=== PATIENT | female | born 1930 | race Caucasian/White ===

== ENCOUNTER 2017-04-05 11:26 | Emergency (ER) | payer MEDICARE ==
[2017-04-05 11:30] VITALS: BP 154/101
--- NOTE | 2017-04-05 12:05 | RAD ---
HISTORY: Confusion, fall, on anticoagulation COMPARISONS: None TECHNIQUE: Multiple contiguous axial CT scans were obtained of the head without intravenous contrast. FINDINGS: HEMORRHAGE/INFARCT: There is no hemorrhage or acute infarct. MASSES/SHIFT: There is no mass or shift. EXTRA-AXIAL SPACES: There are no extra-axial fluid collections. SULCI AND VENTRICLES: The sulci and ventricles are normal in size and position for the patient's stated age. CEREBRUM: There is mild hypoattenuation of the periventricular and subcortical white matter. BRAINSTEM: There are no focal parenchymal abnormalities. CEREBELLUM: There are no focal parenchymal abnormalities. VESSELS: The vessels are grossly normal. PARANASAL SINUSES: The paranasal sinuses are clear. ORBITS: The orbits are unremarkable. BONES AND SOFT TISSUE: No bone or soft tissue abnormalities are noted. OTHER: None IMPRESSION: NO ACUTE INTRACRANIAL PATHOLOGY.
--- NOTE | 2017-04-05 12:31 | RAD ---
Indication: Left shoulder pain. 4 views of left shoulder demonstrates no fracture. AC joint arthritis is noted. IMPRESSION: No fracture of the left shoulder is noted.
--- NOTE | 2017-04-05 12:34 | RAD ---
Indication: LEFT hand pain post fall. Bruising. Comparison: No relevant prior exams available on the [facility] for comparison. Technique: AP and lateral views LEFT hand REPORT AND IMPRESSION: Negative for fracture or dislocation. Minimal polyarticular osteoarthritis. Small subchondral cyst at the proximal pole of the lunate. Mild nonfocal soft tissue swelling.
--- NOTE | 2017-04-06 18:57 | ED ---
Simin Montesinos Thomas, scribed for Emmanuel Han MD on 04/05/17 at 1144 . Head Injury - HPI Summary HPI Summary: The pt is an 87 y/o F with head injury to her left zoroastrianism s/p an accidental fall that occurred about an hour ago. She c/o left arm pain and ecchymosis to her left zoroastrianism. She rates the arm pain 4/10. She denies LOC and neck pain. She is on Coumadin. Her Ronald Contreras is currently a patient at [facility]. Alysia head trauma occurred shortly before the ambulance arrived to her house to transport her to the ED. - History Of Current Complaint Chief Complaint: EDHeadInjury Stated Complaint: FALL Time Seen by Provider: 04/05/17 11:28 Hx Obtained From: Patient Mechanism Of Injury: Fall From A Standing Position Onset/Duration: Started Hours Ago - fall was about one hour ago, Still Present Pain Intensity: 4 Pain Scale Used: 0-10 Numeric Location of Head Injury: Temporal - left Aggravating Factor(s): Other: - Nothing Alleviating Factor(s): Other: - Nothing Associated Signs And Symptoms: Other: - Head trauma, Anticoagulant Therapy: Coumadin - Allergies/Home Medications Allergies/Adverse Reactions: Allergies Allergy/AdvReac Type Severity Reaction Status Date / Time Aspirin Allergy Hives Verified 11/08/15 11:17 Sulfa Antibiotics Allergy Rash Verified 11/08/15 11:17 PMH/Surg Hx/FS Hx/Imm Hx Previously Healthy: No Cardiovascular History: Reports: Hx Coronary Artery Disease, Hx Hypertension, Other Cardiovascular Problems/Disorders - AFIB- ON DIGOXIN Musculoskeletal History: Reports: Hx Arthritis Sensory History: Reports: Hx Cataracts, Hx Contacts or Glasses, Hx Hearing Aid Opthamlomology History: Reports: Hx Cataracts, Hx Contacts or Glasses - Cancer History Hx Chemotherapy: No Hx Radiation Therapy: No - Surgical History Surgery Procedure, Year, and Place: CABG, 2008, [place], [place] Hx Anesthesia Reactions: No Infectious Disease History: No Infectious Disease History: Denies: Traveled Outside the [place] in Last 30 Days - Family History Known Family History: Negative: Other - Negative for cancer - Social History Alcohol Use: None Hx Substance Use: No Substance Use Type: Reports: None Hx Tobacco Use: Yes Smoking Status (MU): Former Smoker Type: Cigarettes Length of Time of Smoking/Using Tobacco: 35 YEARS Have You Smoked in the Last Year: No Review of Systems Positive: Other - L arm pain; NEGATIVE: neck pain Positive: Bruising - to left zoroastrianism Neurological: Other - Head injury; NEGATIVE: LOC All Other Systems Reviewed And Are Negative: Yes Physical Exam - Summary Physical Exam Summary: VITAL SIGNS: Reviewed. GENERAL: Patient is a well-developed and nourished female who is lying comfortable in the stretcher. Patient is not in any acute respiratory distress. HEAD AND FACE: No signs of trauma. No ecchymosis, hematomas or skull depressions. No sinus tenderness. EYES: PERRLA, EOMI x 2, No injected conjunctiva, no nystagmus. EARS: Hearing grossly intact. Ear canals and tympanic membranes are within normal limits. MOUTH: Oropharynx within normal limits. NECK: Supple, trachea is midline, no adenopathy, no JVD, no carotid bruit, no c- spine tenderness, neck with full ROM. CHEST: Symmetric, no tenderness at palpation LUNGS: Clear to auscultation bilaterally. No wheezing or crackles. CVS: Regular rate and rhythm, S1 and S2 present, no murmurs or gallops appreciated. ABDOMEN: Soft, non-tender. No signs of distention. No rebound no guarding, and no masses palpated. Bowel sounds are normal. EXTREMITIES: FROM in all major joints, no edema, no cyanosis or clubbing. NEURO: Alert and oriented x 3. No acute neurological deficits. Speech is normal and follows commands. SKIN: Dry and warm. She has ecchymosis in her left temporal area. Triage Information Reviewed: Yes Vital Signs On Initial Exam: Initial Vitals Temp Pulse Resp BP Pulse Ox 96.9 F 96 17 154/101 96 04/05/17 11:27 04/05/17 11:27 04/05/17 11:27 04/05/17 11:27 04/05/17 11:27 Vital Signs Reviewed: Yes Diagnostics - Vital Signs Vital Signs Temp Pulse Resp BP Pulse Ox 04/05/17 11:27 96.9 F 96 17 154/101 96 - Laboratory Lab Statement: Any lab studies that have been ordered have been reviewed, and results considered in the medical decision making process. - Radiology Hand XR Xray Interpretation: No Acute Changes - Negative for fracture or dislocation. Minimal polyarticular osteoarthritis. Small subchondral cyst at the proximal pole of the lunate. Mild nonfocal soft tissue swelling. ED physician has reviewed this report and agrees. Radiology Interpretation Completed By: Radiologist Shoulder XR Xray Interpretation: No Acute Changes - No fracture of the left shoulder is noted. ED physician has reviewed this report and agrees. Radiology Interpretation Completed By: Radiologist - CT CT Brain CT Interpretation: No Acute Changes - No acute intracranial pathology. ED physician has reviewed this report and agrees. CT Interpretation Completed By: Radiologist Head Injury Course/Dx Assessment/Plan: The pt is an 87 y/o F with head injury to her left zoroastrianism s/p an accidental fall that occurred about an hour ago. She c/o left arm pain and ecchymosis to her left zoroastrianism. She rates the arm pain 4/10. She denies LOC and neck pain. She is on Coumadin. Her Ronald Contreras is currently a patient at [facility]. Amelias head trauma occurred shortly before the ambulance arrived to her house to transport her to the ED. Head CT shows no acute intracranial pathology. Radiographs of the hand and shoulder are negative for dislocation and fracture. The patient is ambulatory, has no complains, and her neurological exam is intact. Therefore, she will be discharged home with follow up by primary care. The patient is hemodynamically stable and alert and oriented x 3. - Diagnoses Provider Diagnoses: Head contusion, Hand contusion Discharge - Discharge Plan Condition: Stable Disposition: HOME Patient Education Materials: Contusion in Adults (ED) Referrals: Fabienne ESTEVEZ,Dian Abdullahi [Primary Care Provider] - 3 Days Additional Instructions: Follow up with your primary care provider in 2-3 days. Return to the emergency department for any new or worsening symptoms. The documentation as recorded by the Simin kendall Thomas accurately reflects the service I personally performed and the decisions made by , Emmanuel Han MD.
== END 2017-04-05 13:21 | disposition home or self-care (01) ==
LOC: ED 11:26
DX: S00.93XA Contusion of unspecified part of head, initial encounter (principal); S60.222A Contusion of left hand, initial encounter; M79.602 Pain in left arm; Z87.891 Personal history of nicotine dependence; Z79.01 Long term (current) use of anticoagulants; W19.XXXA Unspecified fall, initial encounter; Y93.9 Activity, unspecified; Y92.9 Unspecified place or not applicable
CPT/HCPCS: 70450; 99282

== ENCOUNTER 2017-08-02 08:29 | Emergency (ER) | payer MEDICARE ==
[2017-08-02 08:36] VITALS: BP 134/71
--- NOTE | 2017-08-02 09:20 | UC ---
Sadiq Montesinos Gabriel, scribed for Yessi Lock MD on 08/02/17 at 0903 . Respiratory Complaint HPI - HPI Summary HPI Summary: This patient is a 87 year old F presenting [place] [facility] [place] her daughter with a chief complaint of a productive cough that began 6 days ago. Her chest feels a little congested, but she is not particularly short of breath. The patient rates the pain 0/10 in severity. Patient reports chest congestion, left swollen bunion (since yesterday), and sleep disruption. Patient denies fever, chest tightness, [place], ear pain, sore throat, n/v/d, urinary symptoms, back /neck pain, and ABD pain. Pt was admitted for PNA a year and a half ago and has a history of gout. - History of Current Complaint Chief Complaint: UCRespiratory Stated Complaint: COUGH Hx Obtained From: Patient Onset/Duration: Lasting Days, Still Present Timing: Constant Severity Initially: Moderate Severity Currently: Moderate Pain Intensity: 0 Pain Scale Used: 0-10 Numeric Character: Cough: Productive Associated Signs And Symptoms: Positive: Negative - fever, chest tightness, [place], ear pain, sore throat, swollen bunion (since yesterday), n/v/d, urinary symptoms , back/neck pain, and ABD pain. - Risk Factors Cardiac Risk Factors: Hypertension, Prior [place] - Allergies/Home Medications Allergies/Adverse Reactions: Allergies Allergy/AdvReac Type Severity Reaction Status Date / Time aspirin Allergy Hives Verified 08/02/17 08:36 Sulfa (Sulfonamide Allergy Hives Verified 08/02/17 08:36 Antibiotics) Home Medications: Home Medications Ascorbic Acid 1 tab PO DAILY 08/02/17 [History Confirmed 08/02/17] Metoprolol Succinate 1 tab PO DAILY 08/02/17 [History Confirmed 08/02/17] Rosuvastatin Calcium 20 mg PO QPM 08/02/17 [History Confirmed 08/02/17] Simvastatin 1 tab PO DAILY 08/02/17 [History Confirmed 08/02/17] Warfarin TAB(*) [Coumadin TAB(*)] 3.5 mg PO DAILY@1700 08/02/17 [History Confirmed 08/02/17] PMH/Surg Hx/FS Hx/Imm Hx - Additional Past Medical History Additional PMH: Gout Cardiovascular History: Cardiac Disease, Atrial Fibrillation, Other - heart valve replacement. Other Cardiovascular History: heart valve replacement. - Surgical History Surgical History: Yes Surgery Procedure, Year, and Place: CABG, 2009, [place], [place] - Family History Known Family History: Negative: Respiratory Disease, Seizure Disorder - Social History Occupation: Retired Lives: With Family - caregiver for her who has severe COPD Alcohol Use: Rare Substance Use Type: None Smoking Status (MU): Former Smoker Type: Cigarettes Length of Time of Smoking/Using Tobacco: 35 YEARS Have You Smoked in the Last Year: No When Did the Patient Quit Smoking/Using Tobacco: 1974 - Immunization History Most Recent Influenza Vaccination: fall 2014 Most Recent Tetanus Shot: unknown Most Recent Pneumonia Vaccination: 06/2015 Review of Systems Constitutional: Other - sleep disruption Respiratory: Cough, Other - chest congestion Cardiovascular: Other - on digoxin and coumadin due to atrial fibrillation. Musculoskeletal: Negative - neck/back pain, Other: - left swollen bunion Is Patient Immunocompromised?: No All Other Systems Reviewed And Are Negative: Yes Physical Exam Triage Information Reviewed: Yes Appearance: No Pain Distress, Ill-Appearing - congested, frequent cough, looks mildly unwell., Thin Vital Signs: Initial Vital Signs Temp 97.1 F 08/02/17 08:32 Pulse 77 08/02/17 08:32 Resp 16 08/02/17 08:32 BP 134/71 08/02/17 08:32 Pulse Ox 97 08/02/17 08:32 Vital Signs Reviewed: Yes ENT: Positive: Pharynx normal Dental Exam: Normal - partial plate Neck: Positive: Supple, Nontender, No Lymphadenopathy Respiratory: Positive: Normal breath sounds, No respiratory distress Cardiovascular Exam: Other - irregular heart rate. Cardiovascular: Positive: No Murmur Abdomen Description: Positive: Nontender, No Organomegaly, Soft Bowel Sounds: Positive: Present Musculoskeletal: Positive: Other: - left foot with erythema and mild swelling of the first MTP joint. + bunion. Neurological Exam: Normal Neurological: Positive: Alert, Muscle Tone Normal Psychological Exam: Normal Skin Exam: Normal UC Diagnostic Evaluation - Laboratory O2 Sat by Pulse Oximetry: 97 Respiratory Course/Dx - Course Course Of Treatment: BP noted, mildly elevated. Patients medication reviewed during this visit. Cephalexin given due to hx of replacement heart valve. Gout treated with prednisone. - Differential Dx/Diagnosis Differential Diagnosis/HQI/PQRI: Bronchitis, Lower Resp Infection, Sinusitis Provider Diagnoses: URI with cough. acute gout. HTN Discharge - Discharge Plan Condition: Stable Disposition: HOME Prescriptions: Cephalexin CAP* [Keflex 500 CAP*] 500 mg PO TID #30 cap predniSONE [Deltasone] 20 mg PO BID #10 tablet Patient Education Materials: Upper Respiratory Infection (ED) Referrals: Carmelo Olea DO [Primary Care Provider] - Additional Instructions: Because of your history of heart valve replacement, I suggest using cephalexin to treat your respiratory illness. Today, your lungs sound clear. You do have a flare up of gout in the left foot. Prednisone will help with both gout and should also help with the airway irritation and cough. If you develop a fever, or become more short of breath, ensure that you follow up for re-assessment. Use acetaminophen 650 mg three times daily as needed to control the pain in your foot. The documentation as recorded by the Sadiq kendall Gabriel accurately reflects the service I personally performed and the decisions made by me, Yessi Lock MD.
== END 2017-08-02 09:18 | disposition home or self-care (01) ==
LOC: UCEAST 08:29
DX: J06.9 Acute upper respiratory infection, unspecified (principal); R05 Cough; M10.9 Gout, unspecified; I10 Essential (primary) hypertension; I25.2 Old myocardial infarction; Z79.01 Long term (current) use of anticoagulants; Z95.2 Presence of prosthetic heart valve; I51.9 Heart disease, unspecified; I48.91 Unspecified atrial fibrillation; Z87.891 Personal history of nicotine dependence
CPT/HCPCS: 99212; G0463

== ENCOUNTER 2017-08-25 10:15 | Emergency (ER) | payer MEDICARE ==
--- OUTSIDE RECORDS SUMMARY | 2017-08-25 10:26 | XMS REPORT ---
:1930 External Reference #:[id number] Author Organization [facility] Address [address] [place] [address] Phone [phone] Care Team Providers Name Role Phone HCP given Primary Care Physician Unavailable Payers Type Date Identification Numbers Payment Provider Subscriber Commercial Policy Number: [id number] [facility] Medicare Ppo [place] Contreras PayID: [id number] [address] [address] [place] [address] Problems Date Description Provider Status Onset: 09/14/2012 Essential hypertension Tyshawn Baker M.D. Active Onset: 07/22/2015 Chronic atrial fibrillation Tyshawn Baker M.D. Active Onset: 07/22/2015 Coronary arteriosclerosis Tyshawn Baker M.D. Active Onset: 09/14/2012 Anticoagulant Tyshawn Baker M.D. Active Onset: 09/14/2012 Aortic valve disorder Tyshawn Baker M.D. Active Onset: 09/14/2012 Mitral valve disorder Tyshawn Baker M.D. Active Onset: 09/14/2012 Pure hypercholesterolemia Tyshawn Baker M.D. Active Onset: 03/30/2014 Osteochondropathy Tyshawn Baker M.D. Active Onset: 08/15/2014 Late effect of open wound of Carmelo Olea D.O. Active extremities without tendon injury Onset: 03/05/2015 Mitral leaflet abnormality Tyshawn Baker M.D. Active Onset: 09/03/2015 Long-term current use of Tyshawn Baker M.D. Active anticoagulant Family History Date Family Member(s) Problem(s) Comments : (age 69 Years) Father due to COPD smoker : (age 85 Years) Mother due to Unknown Causes : (age 32 Years) First Son due to AIDS First Daughter Well Siblings 6th of 11 Siblings 6 : (age 80 Years) First Brother due to MO : (age 68 Years) Second Brother due to MO : (age 14 Years) Third Brother due to rheumatic fever Fourth Brother Diabetes, Nos Fifth Brother Diabetes, Nos Sixth Brother Dementia First Sister Dementia : (age 91 Years) Second Sister due to Unknown Causes Social History Type Date Description Comments Education Highest level completed, 10th grade Marital Status had pneumonia and ruptured both achilles and can no longer walk Summer 2016 - 65 years in 12/27/2016 Diet 03/30/2014 Calcium Intake GAVE CA HANDOUT Hand Dominance Left-handed Cigarette Use Tobacco Of Any Kind Denies Use Cigarette Use 03/30/2014 Denies Cigarette Use Exercise Type/Frequency 03/30/2014 Exercises sporadically URGED TO WALK EVERY DAY SOME General Hx Text health care proxy is her daughter Allergies, Adverse Reactions, Alerts Date Description Reaction Status Severity Comments 09/14/2012 Sulfa active rash 09/14/2012 Aspirin active hives Medications Medication Date Status Form Strength Qnty SIG Indications Ordering Provider Ventolin HFA 08/22/ Hx Aerosol 108(90Bas 18gm inhale 2 R05 Emmie 2018 - e) puffs by Carmelo 09/21/ mcg/Act mouth every 4 D.O. 2018 hours as needed for bronchospasm Lidocaine Kvng 08/09/ Active Ointment 5% 60gm apply small M54.5 Rose, 2018 amount to [facility] up to 4 M.D. times a day Guaifenesin-Co 08/09/ Active Syrup 100-10mg/ 180ml 5 milliliters R05 rosana Rose 2017 5ML every 4-6 [place], hours for M.D. cough Metoprolol 11/11/ Active Tablets ER 100mg 90tab 1 by mouth I10 Emmie, Succinate ER 2015 24HR s every day Qiana Rhodes Vitamin C 11/09/ Active Tablets 500mg take one Unknown 2016 tablet by mouth daily Vitamin D3 11/09/ Active Tablets 1000Unit 1 by mouth Unknown 2016 every day Simvastatin 06/14/ Active Tablets 20mg 90tab 1 by mouth I34.9 2015 s every day Gissell Rhodes. Digoxin 11/19/ Active Tablets 125mcg 90tab take one neel2014 s tablet by Carmelo, mouth every D.O. day for heart rate control Warfarin 12/31/ Active Tablets 1mg 250ta 4mg a day or Z79.01 Hektor, Sodium 2012 bs as directed YUE Biggs Potassium 02/06/ Hx Tablets ER 20Meq 90tab Take One Tyshawn Sprague 2015 - s Tablet By A. ER 02/06/ Mouth Every 2015 Day M.D. Prednisone 11/18/ Hx Tablets 20mg 7tabs 2 by mouth M10.9 Tyshawn 2015 - every day for A. 11/25/ 2d then 1qd 2015 until gone M.D. Mucinex DM 11/10/ Hx Tablets ER 30-600mg 1 by mouth Unknown 2015 - 12HR twice a day 06/25/ as directed 2017 prn for cough Cefpodoxime 11/09/ Hx Tablets 200mg 2 tablets po Unknown Proxetil 2015 - twice daily 11/15/ for 5 days 2015 Azithromycin 11/09/ Hx Tablets 250mg 2tabs daily for 2 Unknown 2016 - days 2015 Potassium 11/19/ Hx Tablets ER 20Meq 90tab Take One Tyshawn Bergers 2014 - s Tablet By A. ER 11/09/ Mouth Every 2015 Day M.D. Amoxil 09/07/ Hx Capsules 250mg 30cap 1 po tid 466.0 Tyshawn 2014 - s until gone A. 09/07/ Olivia 2014 M.D. Phenergan W09/07/ Hx Syrup 6.25mg;10 8Oz 2 tsp qid prn 466.0 Tyshawn Codeine 2014 - mg/5ML cough A. 09/17/ Olivia 2014 M.D. Amoxicillin 09/07/ Hx Capsules 250mg 30cap 1 three times 466.0 Tyshawn 2014 - s a day for ten A. 09/17/ days for , 2014 infection M.D. Tobramycin 08/26/ Hx Solution 0.3% as directed Unknown 2014 - 2015 Metoprolol 08/02/ Hx Tablets 100mg 180ta Take One I10 Tyshawn Tartrate 2014 - Tablet By A. 11/11/ Mouth Twice A 2015 Day For High M.D. Blood Pressure Potassium 03/03/ Hx Tablets ER 20Meq 90tab take 1 [place], Chloride ER 2012 - tablets once Carmelo, 11/19/ daily D.O. 2015 Gabapentin 09/13/ Hx Capsules 100mg 90cap 1 po qhs 053.9 Tyshawn 2012 - s A. 06/02/ Olivia 2012 M.D. Vitamin D 09/13/ Hx Capsules 1000Unit 1 po daily Unknown 2012 - 2015 Losartan 09/13/ Hx Tablets 50mg 90tab Take One Tyshawn Potassium 2011 - s Tablet By A. 11/09/ Mouth Every 2015 Day For High M.D. Blood Pressure Digoxin 09/10/ Hx Tablets 0.125mg 90tab take 1 tablet [place], 2008 - s daily for Carmelo, 11/19/ heart rate D.O. 2015 control. Potassium 09/10/ Hx Tablet 20Meq 90tab one po daily Tyshawn Chloride CR 2008 - s A. 03/03/ Olivia, 2012 M.D. Metoprolol 09/10/ Hx Tablets 100mg 180ta take 1 twice Tyshawn Tartrate 2008 - bs a day for A. 08/03/ blood Olivia, 2014 pressure M.D. Torsemide 09/10/ Hx Tablets 20mg 180ta take one Tyshawn 2008 - bs tablet by A. 11/09/ mouth twice a [email or web address] day M.D. Crestor 09/09/ Hx Tablets 20mg 90tab take 1 tablet I34.9 Sopneelk, 2008 - s every evening Carmelo, 06/14/ for high D.O. 2016 cholesterol Medications Administered in Office Medication Date Status Form Strength Qnty SIG Indications Ordering Provider injection, Administered Injection Tyshawn jackson, 10 mg 016 Walt Baker Immunizations CPT Code Status Date Vaccine Lot # [id number] Given 04/10/2017 Influenza Virus Vaccine, Quadrivalent, Split, Preservative Free [id number] Given 01/30/2017 Influenza Virus Vaccine, Quadrivalent, Split, [id number] Preservative Free [id number] Given 03/13/2016 Influenza Vaccine Split Virus Preservative Free Im Use 77626 Given 06/14/2015 Prevnar 13 [id number] 24044 Given 03/04/2015 Influenza Vaccine Split Virus Preservative Free [place] Use 72066 Given 02/05/2014 Influenza Vaccine Split Virus Preservative Free Im [id number] Use 66662 Given 03/13/2013 Flu, Split Virus [id number] 44485 Given 11/07/2012 Pneumococcal Immunization [id number] 85181 Given 11/07/2012 Adacel or Boostrix, TDaP [id number] Vital Signs Date Vital Result Comment 08/22/2017 BP Systolic 122 mmHg BP Diastolic 82 mmHg Body Temperature 98.0 F 08/09/2017 BP Systolic 120 mmHg BP Diastolic 82 mmHg Body Temperature 98.6 F Weight 131.00 lb with shoes 04/10/2017 BP Systolic 150 mmHg BP Diastolic 82 mmHg Weight 137.00 lb 12/25/2016 BP Systolic 112 mmHg BP Diastolic 60 mmHg Weight 134.00 lb 06/26/2016 BP Systolic 120 mmHg BP Diastolic 66 mmHg Height 61 inches 5'1" Weight 136.00 lb w/shoes BMI (Body Mass Index) 25.7 kg/m2 11/26/2015 BP Systolic 128 mmHg BP Diastolic 70 mmHg Body Temperature 97.7 F Weight 132.00 lb w/shoes 11/19/2015 BP Systolic 120 mmHg BP Diastolic 60 mmHg 11/12/2015 BP Systolic 110 mmHg BP Diastolic 60 mmHg Heart Rate 88 /min Respiratory Rate 16 /min O2 % BldC Oximetry 95 % Body Temperature 98.8 F Weight 136.00 lb m 06/14/2015 BP Systolic 114 mmHg BP Diastolic 60 mmHg Height 61.5 inches boots on Weight 134.00 lb BMI (Body Mass Index) 24.9 kg/m2 09/07/2014 BP Systolic 124 mmHg BP Diastolic 72 mmHg Heart Rate 69 /min Respiratory Rate 16 /min O2 % BldC Oximetry 92 % Body Temperature 98.0 F Weight 135.00 lb w/shoes 08/15/2014 BP Systolic 123 mmHg BP Diastolic 51 mmHg Heart Rate 59 /min Body Temperature 98.2 F 08/03/2014 BP Systolic 100 mmHg BP Diastolic 66 mmHg Heart Rate 70 /min Respiratory Rate 16 /min Weight 140.00 lb Boots on 06/08/2014 BP Systolic 100 mmHg BP Diastolic 60 mmHg Heart Rate 60 /min Respiratory Rate 16 /min Weight 137.00 lb 03/30/2014 BP Systolic 132 mmHg BP Diastolic 64 mmHg Heart Rate 70 /min RRR Height 61.25 inches 5'1.25" Weight 137.00 lb BMI (Body Mass Index) 25.7 kg/m2 10/27/2013 BP Systolic 116 mmHg BP Diastolic 60 mmHg Weight 135.00 lb 06/02/2013 BP Systolic 114 mmHg BP Diastolic 58 mmHg Height 62 inches 5'2" shoes on Weight 136.50 lb shoes on BMI (Body Mass Index) 25.0 kg/m2 01/30/2013 BP Systolic 102 mmHg BP Diastolic 60 mmHg Heart Rate 80 /min rrr Respiratory Rate 16 /min Weight 134.00 lb 11/07/2012 BP Systolic 94 mmHg BP Diastolic 56 mmHg Heart Rate 80 /min Respiratory Rate 161 /min Weight 131.00 lb 09/14/2012 BP Systolic 100 mmHg BP Diastolic 64 mmHg Height 61 inches 5'1" Weight 130.00 lb BMI (Body Mass Index) 24.6 kg/m2 Results Test Date Test Result H/L Range Note Ua Inhouse 08/09/2017 Ua Specific [place] 1.005 Ua PH 6.0 Protime W/ Inr(Add V58.61) 07/16/2017 Inr 2.08 High 0.77-1.02 Protime W/ Inr(Add V58.61) 07/02/2017 Inr 2.20 High 0.77-1.02 Protime W/ Inr(Add V58.61) 06/25/2017 Inr 1.65 High 0.77-1.02 CMP Panel 06/18/2017 Sodium 137 mmol/L 133-145 1 Potassium 4.7 mmol/L 3.5-5.0 1 Chloride 102 mmol/L 101-111 1 Co2 Carbon Dioxide 31 mmol/L 22-32 1 Anion Gap 4 mmol/L 2-11 1 Glucose 158 mg/dL High 70-100 1 Blood Urea Nitrogen 20 mg/dL 6-24 1 Creatinine 1.04 mg/dL High 0.51-0.95 1 BUN/Creatinine Ratio 19.2 8-20 1 Calcium 9.4 mg/dL 8.6-10.3 1 Total Protein 7.0 g/dL 6.4-8.9 1 Albumin 4.2 g/dL 3.2-5.2 1 Globulin 2.8 g/dL 2-4 1 Albumin/Globulin Ratio 1.5 1-3 1 Total Bilirubin 0.60 mg/dL 0.2-1.0 1 Alkaline Phosphatase 70 U/L 34-104 1 Alt 11 U/L 7-52 1 Ast 22 U/L 13-39 1 Egfr Non- 49.9 >60 1 Egfr 64.2 >60 1, 2 Laboratory test finding 06/18/2017 TSH (Thyroid Stim 2.91 mcIU/mL 0.34- 5.60 1, 3 Horm) Erythrocyte Sed Rate 24 mm/Hr 0-40 1, 4 C Reactive Protein 1.98 mg/L < 5.00 1, 5 Lipid Panel 06/18/2017 Triglycerides 164 mg/dL 1, 6 Cholesterol 150 mg/dL 1, 7 HDL Cholesterol 58.8 mg/dL 1, 8 LDL Cholesterol 58 mg/dL 1, 9 Inr/Protime 06/18/2017 Inr 1.91 High 0.77-1.02 1 CBC W/Auto Diff 06/18/2017 White Blood Count 10.0 10^3/uL 3.5-10.8 1 Red Blood Count 4.61 10^6/uL 4.0-5.4 1 Hemoglobin 13.5 g/dL 12.0-16.0 1 Hematocrit 41 % 35-47 1 Mean Corpuscular Volume 88 fL 80-97 1 Mean Corpuscular Hemoglobin 29 pg 27-31 1 Mean Corpuscular HGB Conc 33 g/dL 31-36 1 Red Cell Distribution Width 14 % 10.5-15 1 Platelet Count 222 10^3/uL 150-450 1 Mean Platelet Volume 8 um3 7.4-10.4 1 Abs Neutrophils 6.1 10^3/uL 1.5-7.7 1 Abs Lymphocytes 3.0 10^3/uL 1.0-4.8 1 Abs Monocytes 0.6 10^3/uL 0-0.8 1 Abs Eosinophils 0.3 10^3/uL 0-0.6 1 Abs Basophils 0.1 10^3/uL 0-0.2 1 Abs Nucleated RBC 0 10^3/uL 1 Granulocyte % 60.8 % 38-83 1 Lymphocyte % 29.6 % 25-47 1 Monocyte % 6.1 % 1-9 1 Eosinophil % 2.8 % 0-6 1 Basophil % 0.7 % 0-2 1 Nucleated Red Blood Cells % 0 1 Laboratory test finding 06/18/2017 Uric Acid 5.3 mg/dL 2.3-6.6 1, 10 Laboratory test finding 05/16/2017 Inr/Protime 2.46 High 0.77-1.02 11 Protime W/ Inr(Add V58.61) 05/11/2017 Inr 3.56 High 0.77-1.02 12, 13 Laboratory test finding 04/06/2017 Inr/Protime 2.29 High 0.89-1.11 14, 15 Protime W/ Inr(Add V58.61) 02/19/2017 Inr 2.61 High 0.89-1.11 Inr/Protime 01/24/2017 Inr 2.45 High 0.89-1.11 Inr/Protime 12/11/2016 Inr 2.14 High 0.89-1.11 Inr/Protime 11/01/2016 Inr 2.10 High 0.89-1.11 Inr/Protime 09/26/2016 Inr 2.22 High 0.89-1.11 Inr/Protime 08/24/2016 Inr 2.15 High 0.89-1.11 Inr/Protime 07/27/2016 Inr 2.22 High 0.89-1.11 Comp Metabolic Panel 06/28/2016 Sodium 137 mmol/L 133-145 Potassium 4.5 mmol/L 3.5-5.0 Chloride 103 mmol/L 101-111 Co2 Carbon Dioxide 30 mmol/L 22-32 Anion Gap 4 mmol/L 2-11 Glucose 94 mg/dL 70-100 Blood Urea Nitrogen 20 mg/dL 6-24 Creatinine 1.05 mg/dL High 0.51-0.95 BUN/Creatinine Ratio 19.0 8-20 Calcium 9.4 mg/dL 8.6-10.3 Total Protein 6.8 g/dL 6.4-8.9 Albumin 4.2 g/dL 3.2-5.2 Globulin 2.6 g/dL 2-4 Albumin/Globulin Ratio 1.6 1-3 Total Bilirubin 0.90 mg/dL 0.2-1.0 Alkaline Phosphatase 48 U/L 34-104 Alt 13 U/L 7-52 Ast 21 U/L 13-39 Egfr Non- 49.5 >60 Egfr 63.6 >60 16 Lipid Profile (Trig/Chol/HDL) 06/28/2016 Triglycerides 110 mg/dL 17 Cholesterol 143 mg/dL 18 HDL Cholesterol 49.2 mg/dL 19 LDL Cholesterol 72 mg/dL 20 Inr/Protime 06/26/2016 Inr 1.99 High 0.89-1.11 Urine Micro Inhouse 06/26/2016 Ua WBC - 21 Ua RBC - 21 Ua Casts - 21 Ua Epi - 21 Ua Other - 21 Ua Glucose - 21 Ua Bilirubin - 21 Ua Ketones - 21 Ua Specific [place] 1.010 21 Ua Blood - 21 Ua PH 6.5 21 Ua Protein - 21 Ua Urobilinogen - 21 Ua Nitrite - 21 Ua Leukocytes - 21 Inr/Protime 04/26/2016 Inr 2.19 High 0.89-1.11 Inr/Protime 04/25/2016 Inr 2.17 High 0.89-1.11 Inr/Protime 04/10/2016 Inr 3.39 High 0.89-1.11 Inr/Protime 03/10/2016 Inr 2.40 High 0.89-1.11 Inr/Protime 02/08/2016 Inr 2.19 High 0.89-1.11 Inr/Protime 02/01/2016 Inr 1.55 High 0.89-1.11 Inr/Protime 12/27/2015 Inr 2.93 High 0.89-1.11 Inr/Protime 12/20/2015 Inr 3.07 High 0.89-1.11 Protime W/ Inr(Add 12/10/2015 Inr 1.51 High 0.89-1.11 V58.61) Laboratory test finding 12/01/2015 Inr/Protime 1.33 High 0.89-1.11 Protime W/ Inr(Add 11/26/2015 #Prothrombin Time <pending> V58.61) #International Normalized <pending> Inr/Protime 11/26/2015 Inr 1.20 High 0.89-1.11 Protime W/ Inr(Add 11/22/2015 #International 1.2 22 V58.61) Normalized Xray 11/19/2015 X-Ray, Foot, Left, wnl Complete Laboratory test 11/19/2015 Erythrocyte Sed Rate 93 mm/Hr High 0-40 finding CBC Auto Diff 11/19/2015 White Blood Count 13.0 10^3/uL High 3.5-10.8 Red Blood Count 3.60 10^6/uL Low 4.0-5.4 Hemoglobin 10.1 g/dL Low 12.0-16.0 Hematocrit 31 % Low 35-47 Mean Corpuscular Volume 87 fL 80-97 Mean Corpuscular Hemoglobin 28 pg 27-31 Mean Corpuscular HGB Conc 32 g/dL 31-36 Red Cell Distribution Width 15 % 10.5-15 Platelet Count 402 10^3/uL 150-450 Mean Platelet Volume 9 um3 7.4-10.4 Abs Neutrophils 9.5 10^3/uL High 1.5-7.7 Abs Lymphocytes 2.3 10^3/uL 1.0-4.8 Abs Monocytes 0.8 10^3/uL 0-0.8 Abs Eosinophils 0.3 10^3/uL 0-0.6 Abs Basophils 0.2 10^3/uL 0-0.2 Abs Nucleated RBC 0.02 10^3/uL Granulocyte % 73.0 % 38-83 Lymphocyte % 17.9 % Low 25-47 Monocyte % 5.9 % 1-9 Eosinophil % 2.0 % 0-6 Basophil % 1.2 % 0-2 Nucleated Red Blood Cells % 0.2 Laboratory test finding 11/19/2015 Uric Acid 5.2 mg/dL 2.3-6.6 Protime W/ Inr(Add 11/15/2015 Inr 1.68 High 0.89-1.11 23 V58.61) CBC W/Auto Diff 11/15/2015 White Blood Count 14.7 10^3/uL High 3.5-10.8 23 Red Blood Count 3.56 10^6/uL Low 4.0-5.4 23 Hemoglobin 10.1 g/dL Low 12.0-16.0 23 Hematocrit 31 % Low 35-47 23 Mean Corpuscular Volume 88 fL 80-97 23 Mean Corpuscular Hemoglobin 28 pg 27-31 23 Mean Corpuscular HGB Conc 32 g/dL 31-36 23 Red Cell Distribution Width 14 % 10.5-15 23 Platelet Count 365 10^3/uL 150-450 23 Mean Platelet Volume 8 um3 7.4-10.4 23 Abs Neutrophils 11.2 10^3/uL High 1.5-7.7 23 Abs Lymphocytes 2.2 10^3/uL 1.0-4.8 23 Abs Monocytes 1.0 10^3/uL High 0-0.8 23 Abs Eosinophils 0.2 10^3/uL 0-0.6 23 Abs Basophils 0.1 10^3/uL 0-0.2 23 Abs Nucleated RBC 0 10^3/uL 23 Granulocyte % 76.1 % 38-83 23 Lymphocyte % 15.1 % Low 25-47 23 Monocyte % 6.6 % 1-9 23 Eosinophil % 1.4 % 0-6 23 Basophil % 0.8 % 0-2 23 Nucleated Red Blood Cells % 0 23 BMP - Basic Metabolic Panel 11/15/2015 Sodium 134 mmol/L 133-145 23 Potassium 4.7 mmol/L 3.5-5.0 23 Chloride 99 mmol/L Low 101-111 23 Co2 Carbon Dioxide 30 mmol/L 22-32 23 Anion Gap 5 mmol/L 2-11 23 Glucose 93 mg/dL 70-100 23 Blood Urea Nitrogen 14 mg/dL 6-24 23 Creatinine 1.02 mg/dL High 0.51-0.95 23 BUN/Creatinine Ratio 13.7 8-20 23 Calcium 9.1 mg/dL 8.6-10.3 23 Egfr Non- 51.3 >60 23 Egfr 65.9 >60 23, 24 Protime W/ Inr(Add 11/11/2015 #International Normalized 3.4 25 V58.61) Rapid Influenza A & 11/08/2015 Influenza A Molecular NEGATIVE Negative 26 B Molecular Influenza B Molecular NEGATIVE Negative Laboratory test 11/08/2015 Rapid Influenza A B SEE RESULT BELOW 27 finding Antigen CBC Auto Diff 11/08/2015 White Blood Count 19.2 10^3/uL High 3.5-10.8 28 Red Blood Count 4.07 10^6/uL 4.0-5.4 28 Hemoglobin 11.6 g/dL Low 12.0-16.0 28 Hematocrit 36 % 35-47 28 Mean Corpuscular Volume 88 fL 80-97 28 Mean Corpuscular Hemoglobin 28 pg 27-31 28 Mean Corpuscular HGB Conc 32 g/dL 31-36 28 Red Cell Distribution Width 14 % 10.5-15 28 Platelet Count 234 10^3/uL 150-450 28 Mean Platelet Volume 8 um3 7.4-10.4 28 Abs Neutrophils 16.1 10^3/uL High 1.5-7.7 28 Abs Lymphocytes 1.4 10^3/uL 1.0-4.8 28 Abs Monocytes 1.4 10^3/uL High 0-0.8 28 Abs Eosinophils 0 10^3/uL 0-0.6 28 Abs Basophils 0.3 10^3/uL High 0-0.2 28 Abs Nucleated RBC 0.01 10^3/uL 28 Granulocyte % 83.9 % High 38-83 28 Lymphocyte % 7.5 % Low 25-47 28 Monocyte % 7.1 % 1-9 28 Eosinophil % 0.1 % 0-6 28 Basophil % 1.4 % 0-2 28 Nucleated Red Blood Cells % 0 28 Inr/Protime 11/08/2015 Inr 3.07 High 0.89-1.11 28 Laboratory test finding 11/08/2015 Partial Thrombo 41.1 seconds High 26.0- 36.3 28 Time PTT Lactic Acid 1.2 mmol/L 0.5-2.0 28, 29 Comp Metabolic Panel 11/08/2015 Sodium 131 mmol/L Low 133-145 28 Potassium 4.3 mmol/L 3.5-5.0 28 Chloride 93 mmol/L Low 101-111 28 Co2 Carbon Dioxide 31 mmol/L 22-32 28 Anion Gap 7 mmol/L 2-11 28 Glucose 144 mg/dL High 70-100 28 Blood Urea Nitrogen 26 mg/dL High 6-24 28 Creatinine 1.42 mg/dL High 0.51-0.95 28 BUN/Creatinine Ratio 18.3 8-20 28 Calcium 9.6 mg/dL 8.6-10.3 28 Total Protein 7.9 g/dL 6.4-8.9 28 Albumin 4.2 g/dL 3.2-5.2 28 Globulin 3.7 g/dL 2-4 28 Albumin/Globulin Ratio 1.1 1-3 28 Total Bilirubin 1.40 mg/dL High 0.2-1.0 28 Alkaline Phosphatase 62 U/L 34-104 28 Alt 9 U/L 7-52 28 Ast 19 U/L 13-39 28 Egfr Non- 35.0 >60 28 Egfr 45.0 >60 28, 30 Laboratory test finding 11/08/2015 Creatine Kinase(CK) 122 U/L 10-223 28 Troponin-I (TnI) 0.04 ng/mL High <0.03 28, 31 C Reactive Protein 127.49 mg/L High < 5.00 28, 32 B-Type Natriuretic Peptide BNP 609 pg/mL High 28, 33 Erythrocyte Sed Rate 87 mm/Hr High 0-40 28 Urinalysis Profile 11/08/2015 Urine Color Yellow 28 Urine Appearance Clear 28 Urine Specific [place] 1.013 1.010-1.030 28 Urine pH 5.0 5-9 28 Urine Urobilinogen Negative Negative 28 Urine Ketones Negative Negative 28 Urine Protein Negative Negative 28 Urine Leukocytes 2+ Negative 28 Urine Blood Negative Negative 28 * * Negative 28, 34 Urine Nitrite Negative Negative 28 Urine Bilirubin Negative Negative 28 Urine Glucose Negative Negative 28 Urine White Blood Cell 1+(6-10/hpf) Absent 28 Urine Red Blood Cell Trace(0-2/hpf) Absent 28 Urine Bacteria Absent Absent 28 Urine Squamous Epithelial Cell Present Absent 28 Laboratory test finding 11/08/2015 Blood Culture SEE RESULT BELOW 35 Urine Culture And Sensitivities SEE RESULT BELOW , 36 Inr/Protime 10/11/2015 Inr 3.02 High 0.89-1.11 Inr/Protime 09/30/2015 Inr 3.14 High 0.89-1.11 Inr/Protime 08/30/2015 Inr 2.23 High 0.89-1.11 Basic Metabolic Panel 07/20/2015 Sodium 138 mmol/L 133-145 Potassium 3.9 mmol/L 3.5-5.0 Chloride 100 mmol/L Low 101-111 Co2 Carbon Dioxide 31 mmol/L 22-32 Anion Gap 7 mmol/L 2-11 Glucose 111 mg/dL High 70-100 Blood Urea Nitrogen 32 mg/dL High 6-24 Creatinine 1.38 mg/dL High 0.51-0.95 BUN/Creatinine Ratio 23.2 High 8-20 Calcium 9.1 mg/dL 8.6-10.3 Egfr Non- 36.2 >60 Egfr 46.5 >60 37 Laboratory test finding 07/20/2015 Ast (Sgot) 26 U/L 13-39 CBC Auto Diff 07/20/2015 White Blood Count 10.1 10^3/uL 3.5-10.8 Red Blood Count 3.99 10^6/uL Low 4.0-5.4 Hemoglobin 11.5 g/dL Low 12.0-16.0 Hematocrit 35 % 35-47 Mean Corpuscular Volume 88 fL 80-97 Mean Corpuscular Hemoglobin 29 pg 27-31 Mean Corpuscular HGB Conc 33 g/dL 31-36 Red Cell Distribution Width 14 % 10.5-15 Platelet Count 229 10^3/uL 150-450 Mean Platelet Volume 9 um3 7.4-10.4 Abs Neutrophils 6.8 10^3/uL 1.5-7.7 Abs Lymphocytes 2.4 10^3/uL 1.0-4.8 Abs Monocytes 0.7 10^3/uL 0-0.8 Abs Eosinophils 0.2 10^3/uL 0-0.6 Abs Basophils 0.1 10^3/uL 0-0.2 Abs Nucleated RBC 0 10^3/uL Granulocyte % 67.8 % 38-83 Lymphocyte % 23.4 % Low 25-47 Monocyte % 6.6 % 1-9 Eosinophil % 1.6 % 0-6 Basophil % 0.6 % 0-2 Nucleated Red Blood Cells % 0 Lipid Profile (Trig/Chol/HDL) 07/20/2015 Triglycerides 151 mg/dL 38 Cholesterol 165 mg/dL 39 HDL Cholesterol 42.1 mg/dL 40 LDL Cholesterol 93 mg/dL 41 Laboratory test finding 07/20/2015 Digoxin 0.7 ng/ml Low 0.8-2.0 Inr/Protime 07/20/2015 Inr 2.28 High 0.89-1.11 Inr/Protime 06/23/2015 Inr 2.49 High 0.89-1.11 Laboratory test finding 06/14/2015 Ast (Sgot) <pending> Laboratory test finding 06/14/2015 Digoxin <pending> Urine Micro Inhouse 06/14/2015 Ua WBC - 42 Ua RBC - 42 Ua Casts - 42 Ua Epi - 42 Ua Other - 42 Ua Glucose - 42 Ua Bilirubin - 42 Ua Ketones - 42 Ua Specific [place] 1.005 42 Ua Blood - 42 Ua PH 6.0 42 Ua Protein - 42 Ua Urobilinogen - 42 Ua Nitrite - 42 Ua Leukocytes - 42 Inr/Protime 05/10/2015 Inr 2.64 High 0.89-1.11 Inr/Protime 04/05/2015 Inr 2.45 High 0.78-1.07 Inr/Protime 03/05/2015 Inr 2.76 High 0.78-1.07 Inr/Protime 01/27/2015 Inr 2.75 High 0.78-1.07 Inr/Protime 12/21/2014 Inr 2.11 High 0.78-1.07 Inr/Protime 11/27/2014 Inr 2.37 High 0.78-1.07 Inr/Protime 11/09/2014 Inr 2.72 High 0.78-1.07 Inr/Protime 10/16/2014 Inr 2.19 High 0.78-1.07 Inr/Protime 10/01/2014 Inr 3.33 High 0.78-1.07 Laboratory test finding 09/03/2014 Inr 2.87 High 0.78-1.07 Urine Micro Inhouse 08/03/2014 Ua WBC - Ua RBC - Ua Casts - Ua Epi - Ua Other - Ua Glucose - Ua Bilirubin - Ua Ketones - Ua Specific [place] 1.010 Ua Blood - Ua PH 6.0 Ua Protein - Ua Urobilinogen - Ua Nitrite - Ua Leukocytes - Inr/Protime 08/03/2014 Inr 2.64 High 0.78-1.07 43 Lipid Profile 08/03/2014 Triglycerides 117 mg/dL 44, 45 (Trig/Chol/HDL) Cholesterol 103 mg/dL 44, 46 HDL Cholesterol 39.2 mg/dL 44, 47 LDL Cholesterol 40 mg/dL 44, 48 Laboratory test finding 08/03/2014 Ast 45 U/L High 13-39 44, 49 Laboratory test finding 07/03/2014 Inr 2.61 High 0.85-1.06 Laboratory test finding 06/01/2014 Inr 2.46 High 0.85-1.06 Inr/Protime 05/05/2014 Inr 2.24 High 0.85-1.06 Inr/Protime 04/20/2014 Inr 1.79 High 0.85-1.06 Inr/Protime 03/20/2014 Inr 2.13 High 0.85-1.06 Inr/Protime 02/16/2014 Inr 2.10 High 0.85-1.06 Protime W/ Inr(Add 01/14/2014 Inr 2.30 High 0.85-1.06 V58.61) Laboratory test finding 12/11/2013 Inr 2.73 High 0.85-1.06 Inr/Protime 11/14/2013 Inr 2.57 High 0.85-1.06 Xray 10/27/2013 X-Ray, Chest, 2 see notes 50 Views Urine Micro Inhouse 10/27/2013 Ua WBC - Ua RBC - Ua Casts - Ua Epi - Ua Other - Ua Glucose - Ua Bilirubin - Ua Ketones - Ua Specific [place] 1.005 Ua Blood - Ua PH 6.0 Ua Protein - Ua Urobilinogen - Ua Nitrite - Ua Leukocytes - Laboratory test finding 10/13/2013 Inr 2.13 High 0.85-1.06 Laboratory test finding 10/06/2013 Inr 1.78 High 0.85-1.06 Inr/Protime 09/29/2013 Inr 2.05 High 0.85-1.06 Inr/Protime 09/16/2013 Inr 2.95 High 0.85-1.06 Laboratory test finding 08/12/2013 Inr 2.88 High 0.85-1.06 Laboratory test finding 07/31/2013 Inr 2.80 High 0.85-1.06 Inr/Protime 07/24/2013 Inr 1.79 High 0.85-1.06 Inr/Protime 06/24/2013 Inr 2.18 High 0.85-1.06 Lipid Profile (Trig/Chol/HDL) 05/23/2013 Triglycerides 220 mg/dL High 40- 200 Cholesterol 144 mg/dL Less than 200 HDL Cholesterol 46 mg/dL 40-60 51 Cholesterol/HDL Ratio 3.1 Average 1-4.44 LDL Cholesterol 54.0 Less Than 100 52 Laboratory test finding 05/23/2013 Ast 28 U/L 12-42 53 CBC Auto Diff 05/23/2013 White Blood Count 8.7 10^3/uL 4.8-10.8 Red Blood Count 4.03 10^6/uL 4.0-5.4 Hemoglobin 11.8 g/dL Low 12.0-16.0 Hematocrit 35 % 35-47 Mean Corpuscular Volume 87 fL 80-97 Mean Corpuscular Hemoglobin 29 pg 27-31 Mean Corpuscular HGB Conc 34 g/dL 31-36 Red Cell Distribution Width 14 % 10.5-15 Platelet Count 206 10^3/uL 150-450 Mean Platelet Volume 10 um3 7.4-10.4 Abs Neutrophils 4.9 10^3/uL 1.5-7.7 Abs Lymphocytes 2.9 10^3/uL 1.0-4.8 Abs Monocytes 0.6 10^3/uL 0-0.8 Abs Eosinophils 0.2 10^3/uL 0-0.6 Abs Basophils 0.1 10^3/uL 0-0.2 Abs Nucleated RBC 0 10^3/uL Granulocyte % 57.0 % 38-83 Lymphocyte % 33.1 % 25-47 Monocyte % 7.2 % 1-9 Eosinophil % 1.9 % 0-6 Basophil % 0.8 % 0-2 Nucleated Red Blood Cells % 0 Basic Metabolic Panel 05/23/2013 Sodium 141 mmol/L 133-145 Potassium 4.3 mmol/L 3.5-5.0 Chloride 103 mmol/L 101-111 Co2 Carbon Dioxide 32.0 mmol/L 22-32 Anion Gap 6.0 mmol/L 2-11 Glucose 110 mg/dL High 70-100 Blood Urea Nitrogen 19 mg/dL 6-24 Creatinine 1.20 mg/dL 0.50-1.40 BUN/Creatinine Ratio 15.8 8-20 Calcium 9.5 mg/dL 8.1-9.9 Egfr Non- 42.7 >60 Egfr 54.9 >60 54 Inr/Protime 05/23/2013 Inr 2.15 High 0.85-1.06 55 Laboratory test finding 04/22/2013 Inr 2.19 High 0.85-1.06 56 Laboratory test finding 03/28/2013 Inr 2.27 High 0.87-0.97 Laboratory test finding 03/20/2013 Inr 1.95 High 0.87-0.97 Inr/Protime 03/13/2013 Inr 1.83 High 0.87-0.97 Inr/Protime 03/06/2013 Inr 1.94 High 0.87-0.97 Laboratory test finding 02/13/2013 Inr 3.33 High 0.87-0.97 Urine Micro Inhouse 01/30/2013 Ua WBC - Ua RBC - Ua Casts - Ua Epi - Ua Other - Ua Glucose - Ua Bilirubin - Ua Ketones - Ua Specific [place] 1.010 Ua Blood - Ua PH 5.0 Ua Protein - Ua Urobilinogen - Ua Nitrite - Ua Leukocytes - Inr/Protime 01/30/2013 Inr 1.81 High 0.87-0.97 Laboratory test finding 01/13/2013 Inr 2.37 High 0.87-0.97 Laboratory test finding 12/31/2012 Inr 3.45 High 0.87-0.97 Inr/Protime 12/03/2012 Inr 2.65 High 0.87-0.97 Urine Micro Inhouse 11/07/2012 Ua WBC 0-2 Ua RBC - Ua Casts - Ua Epi 0-1 Ua Other - Ua Glucose - Ua Bilirubin - Ua Ketones - Ua Specific [place] 1.010 Ua Blood - Ua PH 5.0 Ua Protein - Ua Urobilinogen - Ua Nitrite - Ua Leukocytes - Laboratory test finding 10/28/2012 Inr 3.00 High 0.87-0.97 Inr/Protime 10/01/2012 Inr 2.97 High 0.87-0.97 1 [id number] 2 Because ethnic data is not always readily available, this report includes an eGFR for both -Americans and non- Americans. The National Kidney Disease Education Program (NKDEP) does not endorse the use of the MDRD equation for patients that are not between the ages of 18 and 70, are , have extremes of body size, muscle mass, or nutritional status, or are non- or non-. According to the National Kidney Foundation, irrespective of diagnosis, the stage of the disease is based on the level of kidney function: Stage Description GFR(mL/min/1.73 m(2)) 1 Kidney damage with normal or decreased GFR 90 2 Kidney damage with mild decrease in GFR 60-89 3 Moderate decrease in GFR 30-59 4 Severe decrease in GFR 15-29 5 Kidney failure <15 (or dialysis) 3 [id number] 5 Acute inflammation: >10.00 6 Desirable: <150 Borderline High: 150-199 High: 200-499 Very High: >500 7 Desirable: <200 Borderline High: 200-239 High: >239 8 Low: <40 Desirable: 40-60 High: >60 9 Desirable: <100 Near Optimal: 100-129 Borderline High: 130-159 High: 160-189 Very High: >189 10 [id number] 11 Please note the change in INR reference range effective 17. 12 [id number] 13 Please note the change in INR reference range effective 17. 14 [id number] 15 [id number] 16 Because ethnic data is not always readily available, this report includes an eGFR for both -Americans and non- Americans. The National Kidney Disease Education Program (NKDEP) does not endorse the use of the MDRD equation for patients that are not between the ages of 18 and 70, are , have extremes of body size, muscle mass, or nutritional status, or are non- or non-. According to the National Kidney Foundation, irrespective of diagnosis, the stage of the disease is based on the level of kidney function: Stage Description GFR(mL/min/1.73 m(2)) 1 Kidney damage with normal or decreased GFR 90 2 Kidney damage with mild decrease in GFR 60-89 3 Moderate decrease in GFR 30-59 4 Severe decrease in GFR 15-29 5 Kidney failure <15 (or dialysis) 17 Desirable <150 Borderline high 150-199 High 200-499 Very High >500 18 Desirable <200 Borderline high 200-239 High >239 19 Low <40 Desirable: 40-60 High: >60 20 Desirable: <100 mg/dL Near Optimal: 100-129 mg/dL Borderline High: 130-159 mg/dL High: 160-189 mg/dL Very High: >189 mg/dL 21 void, clear, yellow 22 called in by Adina liao w/VNS 23 INR in separate triage. SL 24 Because ethnic data is not always readily available, this report includes an eGFR for both -Americans and non- Americans. The National Kidney Disease Education Program (NKDEP) does not endorse the use of the MDRD equation for patients that are not between the ages of 18 and 70, are , have extremes of body size, muscle mass, or nutritional status, or are non- or non-. According to the National Kidney Foundation, irrespective of diagnosis, the stage of the disease is based on the level of kidney function: Stage Description GFR(mL/min/1.73 m(2)) 1 Kidney damage with normal or decreased GFR 90 2 Kidney damage with mild decrease in GFR 60-89 3 Moderate decrease in GFR 30-59 4 Severe decrease in GFR 15-29 5 Kidney failure <15 (or dialysis) 25 fingerstick by VNS nurse 26 Front Desk Assistant: [id number] VIRGIE SANTILLAN 27 SEE RESULT BELOW Name: GENEVA CONTRERAS : [address]: Eros Peters DO Acct: [id number] Unit: [id number] AGE: 85 Location: ED Re11/08/15 SEX: F Status: REG ER SPEC: [id number] MANN: 11/08/[address]: Eros Peters DO REQ: [id number] RECD: 11/08/15 STATUS: ARNOLD LOVELACE DR: Tyshawn Baker MD _ SOURCE: NASAL SPDESC: ORDERED: Flu A B Request Procedure Result Reported Site Rapid Influenza A B Request Final 11/08/15- 1338 ML Specimen received for Influenza A/B Molecular testing * ML - MAIN LAB ([facility]) . END OF REPORT * ML=Testing performed at Main Lab DEPARTMENT OF PATHOLOGY, [address] [place] [address] Andrew Perez M.D. Director [facility] # [id number] 28 pt in hospital [facility] Severe Sepsis and Septic Shock Management Bundle Measure requires all lactic acids initially measuring >2.0 mmol/L be repeated. 30 Because ethnic data is not always readily available, this report includes an eGFR for both -Americans and non- Americans. The National Kidney Disease Education Program (NKDEP) does not endorse the use of the MDRD equation for patients that are not between the ages of 18 and 70, are , have extremes of body size, muscle mass, or nutritional status, or are non- or non-. According to the National Kidney Foundation, irrespective of diagnosis, the stage of the disease is based on the level of kidney function: Stage Description GFR(mL/min/1.73 m(2)) 1 Kidney damage with normal or decreased GFR 90 2 Kidney damage with mild decrease in GFR 60-89 3 Moderate decrease in GFR 30-59 4 Severe decrease in GFR 15-29 5 Kidney failure <15 (or dialysis) 31 Reference Range and Interpretation: TnI (ng/mL) Interpretation Less Than 0.03 ng/mL Not supportive of diagnosis of MO 0.03 - 0.50 ng/mL Indeterminate: suggest serial studies if clinically indicated. Greater than 0.5 ng/mL Consistent with diagnosis of MO 32 Acute inflammation: >10.00 33 >100 to <200 pg/mL: likely compensated congestive heart failure (CHF) 200 to 400 pg/mL: likely moderate CHF >400 pg/mL: likely moderate to severe CHF 34 *Ascorbic acid is present which may interfere with detection of blood. 35 SEE RESULT BELOW Name: GENEVA CONTRERAS : [address]: Beckie Rob DO Acct: [id number] Unit: [id number] AGE: 85 Location: [address] Re11/08/15 Dis: 11/10/15 SEX: F Status: DIS IN SPEC: [id number] MANN: 11/08/15-[address]: Eros Peters DO REQ: [id number] RECD: 11/08/15 STATUS: ARNOLD LOVELACE DR: Tyshawn Baker MD _ SOURCE: BLOOD,VENO SPDESC: ORDERED: Blood Cult Procedure Result Reported Site Aerobic Culture Bottle Final 11/13/15- 1138 ML No Growth Day 5 Anaerobic Culture Bottle Final 11/13/15- 1138 ML No Growth Day 5 * ML - [facility] ([facility]) . END OF REPORT * ML=Testing performed at Main Lab DEPARTMENT OF PATHOLOGY, [address] [place] [address] Andrew Perez M.D. Director [facility] # [id number] 36 SEE RESULT BELOW Name: SOOANTONIETTAGENEVA : [address]: Beckie Rob DO Acct: [id number] Unit: [id number] AGE: 85 Location: [facility] 434-01 Re11/08/15 Dis: 11/10/15 SEX: F Status: DIS IN SPEC: [id number] MANN: 11/09/[address]: Eros Peters DO REQ: [id number] RECD: 11/09/15 STATUS: ARNOLD LOVELACE DR: Tyshawn Baker MD _ SOURCE: URINE [facility]: ORDERED: Urine Culture Procedure Result Reported Site Urine Culture Final 11/12/15- 0825 ML No growth of clinically significant organisms * ML - MAIN LAB ([facility]) . END OF REPORT * ML=Testing performed at Main Lab DEPARTMENT OF PATHOLOGY, [address] [place] [address] Andrew Perez M.D. Director [facility] # [id number] 37 Because ethnic data is not always readily available, this report includes an eGFR for both -Americans and non- Americans. The National Kidney Disease Education Program (NKDEP) does not endorse the use of the MDRD equation for patients that are not between the ages of 18 and 70, are , have extremes of body size, muscle mass, or nutritional status, or are non- or non-. According to the National Kidney Foundation, irrespective of diagnosis, the stage of the disease is based on the level of kidney function: Stage Description GFR(mL/min/1.73 m(2)) 1 Kidney damage with normal or decreased GFR 90 2 Kidney damage with mild decrease in GFR 60-89 3 Moderate decrease in GFR 30-59 4 Severe decrease in GFR 15-29 5 Kidney failure <15 (or dialysis) 38 Desirable <150 Borderline high 150-199 High 200-499 Very High >500 39 Desirable <200 Borderline high 200-239 High >239 40 Low <40 Desirable: 40-60 High: >60 41 Desirable: <100 mg/dL Near Optimal: 100-129 mg/dL Borderline High: 130-159 mg/dL High: 160-189 mg/dL Very High: >189 mg/dL 42 void, clear, yellow 43 Please note: Effective July 08, 2014, the reference value for this test has changed due to the validation and activation of a new reagent lot number. 44 FASTING 10 HOUR~BREAKFAST: cereal with reg milk this am 45 Desirable <150 Borderline high 150-199 High 200-499 Very High >500 46 Desirable <200 Borderline high 200-239 High >239 47 Low <40 Desirable: 40-60 High: >60 48 Desirable <100 Near Optimal 100-129 Borderline high 130-159 High 160-189 Very High >189 49 FASTING 10 HOUR BREAKFAST: cereal with reg milk this am 50 cardiomegaly no acute changes no effusion no cephalization of vasc 51 HDL Interpretation: Undesirable: High Risk: Less than 40 mg/dL Desirable: Low Risk: Greater than 60 mg/dL 52 LDL Interpretation: Low Risk Optimal Level: LDL Less than 100 mg/dL Near or Above Optimal: LDL 100-129 mg/dL Borderline High Risk: LDL 130-159 mg/dL High Risk: LDL 160-189 mg/dL Very High Risk: LDL Greater than 189 mg/dL 53 FASTING 54 Because ethnic data is not always readily available, this report includes an eGFR for both -Americans and non- Americans. The National Kidney Disease Education Program (NKDEP) does not endorse the use of the MDRD equation for patients that are not between the ages of 18 and 70, are , have extremes of body size, muscle mass, or nutritional status, or are non- or non-. According to the National Kidney Foundation, irrespective of diagnosis, the stage of the disease is based on the level of kidney function: Stage Description GFR(mL/min/1.73 m(2)) 1 Kidney damage with normal or decreased GFR 90 2 Kidney damage with mild decrease in GFR 60-89 3 Moderate decrease in GFR 30-59 4 Severe decrease in GFR 15-29 5 Kidney failure <15 (or dialysis) 55 Please note the change in the INR reference range effective 13. 56 Please note the change in the INR reference range effective 13. Procedures Date CPT Code Description Status Comment 07/16/2017 31485 Anticoagulant MGMT For Patient Taking Completed Warfarin, Inc Review & Intr 07/03/2017 66695 Anticoagulant MGMT For Patient Taking Completed Warfarin, Inc Review & Intr 06/25/2017 50389 Anticoagulant MGMT For Patient Taking Completed Warfarin, Inc Review & Intr 06/19/2017 34472 Anticoagulant MGMT For Patient Taking Completed Warfarin, Inc Review & Intr 11/26/2015 93736 X-Ray Chest Two Views Completed 11/26/2015 25489 Inject/Drain Joint/Bursa Small Completed 11/19/2015 14302 X-Ray Foot Three Views Completed 11/19/2015 13366 Remove Impact Cerumen Requiring Completed Instrument, Unilateral 06/14/2015 31785 Electrocardiogram Complete Completed 09/07/2014 84029 X-Ray Chest Two Views Completed 03/30/2014 05204 Dexa Bone Density Study One Or More Completed Sites Axial Skeleton 10/27/2013 36981 Electrocardiogram Complete Completed 10/27/2013 62542 X-Ray Chest Two Views Completed 09/09/2013 Mammogram Completed 2014:normal 09/14/2012 41598 Electrocardiogram Complete Completed 07/15/2007 Colonoscopy Completed normal in [place] 06/11/2007 Bone Mineral Density Test Completed normal Encounters Type Date Location Provider CPT E/M Dx Office Visit 08/22/2017 3:45p Main Office Carmelo Olea D.O. 09530 R05 Office Visit 08/09/2017 11:00a Main Office Jennifer Spring 50854 M54.5 M54.2 R05 Office Visit 04/10/2017 4:00p Main Office Jennifer Spring 81740 S40.012D S00.12xD M89.8x8 M54.6 Z23 I10 Z91.81 Office Visit 12/25/2016 10:00a Main Office Carmelo Olea D.O. 89225 Z79.01 I34.9 I10 E78.00 M79.672 Office Visit 06/26/2016 1:30p Main Office Tyshawn Baker M.D. 15608 M25.511 Z79.01 I34.9 I10 E78.00 I34.0 Office Visit 11/26/2015 11:30a Main Office Tyshawn Baker M.D. 19023 J18.9 M79.672 Z79.01 I34.9 M77.42 I51.7 Office Visit 11/19/2015 1:30p Main Office Tyshawn Baker M.D. 00492 H61.22 M79.672 M10.9 Z79.01 Office Visit 11/12/2015 1:45p Main Office Tyshawn Baker M.D. 36889 J18.9 I10 Z79.01 I34.9 I35.9 E78.0 Office Visit 06/14/2015 8:55a Main Office Tyshawn Baker M.D. 88934 I34.9 I35.9 Z79.01 I10 E78.0 Z23 Z41.8 Office Visit 09/07/2014 11:30a Main Office Tyshawn Baker M.D. 81623 786.2 466.0 Office Visit 08/15/2014 10:30a Main Office Carmelo Olea D.O. 87214 V58.61 882.0 906.1 E917.3 E849.0 Office Visit 08/03/2014 9:15a Main Office Tyshawn Baker M.D. 77921 424.0 424.1 V58.61 401.9 272.0 Office Visit 06/08/2014 4:00p Main Office Tyshawn Baker M.D. 51927 424.0 424.1 V58.61 401.9 272.0 V58.69 366.9 V72.83 Office Visit 03/30/2014 10:00a Main Office Tyshawn Baker M.D. 72904 733.90 424.1 424.0 V58.61 401.9 272.0 V58.69 Office Visit 10/27/2013 11:15a Main Office Tyshawn Baker M.D. 44950 733.90 786.2 424.1 424.0 401.9 272.0 V58.61 Office Visit 06/02/2013 11:15a Main Office Tyshawn Baker M.D. 38330 424.1 V58.61 401.9 424.0 272.0 V76.10 Office Visit 01/30/2013 12:55p Main Office Tyshawn Baker M.D. 24684 401.9 424.1 V58.61 424.0 272.0 Office Visit 11/07/2012 4:15p Main Office Tyshawn Baker M.D. 58615 424.0 424.1 401.9 V58.61 V65.49 V03.82 V06.1 V07.2 Office Visit 09/14/2012 9:15a Main Office Tyshawn Baker M.D. 32093 053.9 V58.61 401.9 424.1 424.0 272.0 V45.81 Plan of Care 08/22/2017 - Carmelo Olea D.O.R05 CoughNew Medication:Ventolin HFA 108(90 Base) mcg/ActFollow up:as needed
--- OUTSIDE RECORDS SUMMARY | 2017-08-25 10:27 | XMS REPORT ---
:1930 External Reference #:[id number] Author Organization [facility] Address [address] [place] [address] Phone [phone] Care Team Providers Name Role Phone HCP given Primary Care Physician Unavailable Payers Type Date Identification Numbers Payment Provider Subscriber Commercial Policy Number: [id number] [facility] Medicare Ppo Geneva Contreras PayID: [id number] [address] [address] [place] [address] Problems Date Description Provider Status Onset: 09/14/2012 [...] (age 78 Years) First Brother due to [place] : (age 68 Years) Second Brother due to [place] : (age 14 Years) Third Brother due [...] Form Strength Qnty SIG Indications Ordering Provider Lidocaine Kvng 08/09/ Active Ointment 5% 60gm apply small M54.5 Rose, 2017 amount to Edis [facility] up to 4 M.D. times a day Guaifenesin-Co 08/09/ Active Syrup 100-10mg/5 180ml 5 R05 rosana Rose 2018 ML milliliters Edis every 4-6 M.D. hours for cough Metoprolol 11/11/ Active Tablets ER 100mg 90tab 1 by mouth I10 Sopchak, Succinate ER 2015 24HR s every day Carmelo D.O. Vitamin C 11/09/ Active Tablets 500mg take one Unknown 2015 tablet by mouth daily Vitamin D3 11/09/ Active Tablets 1000Unit 1 by mouth Unknown 2015 every day Simvastatin 06/14/ Active Tablets 20mg 90tab 1 by mouth I34.9 Emmie, 2015 s every day Carmelo, D.O. Digoxin 11/19/ Active Tablets 125mcg 90tab take one Emmie 2014 s tablet by Carmelo, mouth every D.O. day for heart rate control Warfarin 12/31/ Active Tablets 1mg 250ta 4mg a day or Z79.01 Hektor, Sodium 2012 bs as directed ROBERT Biggs Potassium 02/06/ Hx Tablets ER 20Meq 90tab Take One Tyshawn Chloride Darcie 2015 - s Tablet By A. ER 02/06/ Mouth Every 2015 Day M.D. Prednisone 11/18/ Hx Tablets 20mg 7tabs 2 by mouth M10.9 Tyshawn 2015 - every day A. 11/25/ for 2d then 2015 1qd until M.D. gone Mucinex DM 11/10/ Hx Tablets ER 30-600mg 1 by mouth Unknown 2015 - 12HR twice a day 06/25/ as directed 2016 prn for cough Cefpodoxime 11/09/ Hx Tablets 200mg 2 tablets po Unknown Proxetil 2015 - twice daily 11/15/ for 5 days 2015 Azithromycin 11/09/ Hx Tablets 250mg 2tabs daily for 2 Unknown 2015 - days 2015 Potassium 11/19/ Hx Tablets ER 20Meq 90tab Take One Tyshawn Chloride Darcie 2014 - Tablet By A. ER 11/09/ Mouth Every 2015 Day M.D. Amoxil 09/07/ Hx Capsules 250mg 30cap 1 po tid 466.0 Tyshawn 2014 - s until gone A. 09/07/ robert2014 M.D. Phenergan W09/07/ Hx Syrup 6.25mg;10m 8Oz 2 tsp qid 466.0 Tyshawn Codeine 2014 - g/5ML prn cough A. 09/17/ priya2014 M.D. Amoxicillin 09/07/ Hx Capsules 250mg 30cap 1 three 466.0 Tyshawn 2014 - s times a day A. 09/17/ for ten days 2014 for M.D. infection Tobramycin 08/26/ Hx Solution 0.3% as directed Unknown 2014 - 2015 Metoprolol 08/02/ Hx Tablets 100mg 180ta Take One I10 Tyshawn Tartrate 2014 - Tablet By A. 11/11/ Mouth Twice 2015 A Day For M.D. High Blood Pressure Potassium 03/03/ Hx Tablets ER 20Meq 90tab take 1 Sopchak, Chloride ER 2012 - s tablets once Carmelo, 11/19/ daily D.O. 2015 Gabapentin 09/13/ Hx Capsules 100mg 90cap 1 po qhs 053.9 Tyshawn 2012 A. 06/02/ Olivia 2012 M.D. Vitamin D 09/13/ Hx Capsules 1000Unit 1 po daily Unknown 2012 - 2015 Losartan 09/13/ Hx Tablets 50mg 90tab Take One Tyshawn Potassium 2011 - Tablet By A. 11/09/ Mouth Every Olivia, 2015 Day For High M.D. Blood Pressure Digoxin 09/10/ Hx Tablets 0.125mg 90tab take 1 Sopchak, 2008 - s tablet daily Carmelo, 11/19/ for heart D.O. 2014 rate control. Potassium 09/10/ Hx Tablet 20Meq 90tab one po daily Tyshawn Chloride CR 2008 A. 03/03/ Olivia 2012 M.D. Metoprolol 09/10/ Hx Tablets 100mg 180ta take 1 twice Tyshawn Tartrate 2008 a day for A. 08/03/ blood Olivia, 2014 pressure M.D. Torsemide 09/10/ Hx Tablets 20mg 180ta take one Tyshawn 2008 - bs tablet by A. 11/09/ mouth twice Olivia, 2015 a day M.D. Crestor 09/09/ Hx Tablets 20mg 90tab take 1 I34.9 Sopchak, 2008 - s tablet every Carmelo, 06/14/ evening for D.O. 2016 high cholesterol Medications Administered in Office Medication Date Status Form Strength Qnty SIG Indications Ordering Provider injection, Administered Injection Tyshawn jackson, 10 mg 016 Walt Baker Immunizations CPT Code Status Date Vaccine Lot # [id number] Given 04/10/2017 Influenza Virus Vaccine, Quadrivalent, Split, Preservative Free 93118 Given 01/30/2017 Influenza Virus Vaccine, Quadrivalent, Split, [id number] Preservative Free 64776 Given 03/13/2016 Influenza Vaccine Split Virus Preservative Free Im Use 55482 Given 06/14/2015 Prevnar 13 [id number] 27124 Given 03/04/2015 Influenza Vaccine Split Virus Preservative Free Im Use 11822 Given 02/05/2014 Influenza Vaccine Split Virus Preservative Free Im [id number] Use 75737 Given 03/13/2013 Flu, Split Virus 3Yrs [id number] 49124 Given 11/07/2012 Pneumococcal Immunization [id number] 38289 Given 11/07/2012 Adacel or Boostrix, TDaP [id number] Vital Signs Date Vital Result Comment 08/22/2017 [...] Range Note Ua Inhouse 08/09/2017 Ua Specific [place] 1.005 Ua PH 6.0 Protime W/ Inr(Add [...] 21 Ua Ketones - 21 Ua Specific [place] 1.010 21 Ua Blood - 21 Ua [...] 28 Urine Appearance Clear 28 Urine Specific [place] 1.013 1.010-1.030 28 Urine pH 5.0 5-9 [...] finding 11/08/2015 Blood Culture SEE RESULT BELOW , 35 Urine Culture And Sensitivities SEE RESULT [...] 42 Ua Ketones - 42 Ua Specific [place] 1.005 42 Ua Blood - 42 Ua [...] Bilirubin - Ua Ketones - Ua Specific [place] 1.010 Ua Blood - Ua PH 6.0 [...] Bilirubin - Ua Ketones - Ua Specific [place] 1.005 Ua Blood - Ua PH 6.0 [...] Bilirubin - Ua Ketones - Ua Specific [place] 1.010 Ua Blood - Ua PH 5.0 [...] Bilirubin - Ua Ketones - Ua Specific [place] 1.010 Ua Blood - Ua PH 5.0 Ua Protein - Ua Urobilinogen - Ua Nitrite - Ua Leukocytes - Laboratory test finding 10/28/2012 Inr 3.00 High 0.87-0.97 Inr/Protime 10/01/2012 Inr 2.97 High 0.87-0.97 1 [id number] 2 Because ethnic data is not always [...] 5 Kidney failure <15 (or dialysis) 3 [id number] 4 [id number] 5 Acute inflammation: >10.00 6 Desirable: <150 Borderline High: 150-199 High: 200-499 Very High: >500 7 Desirable: <200 Borderline High: 200-239 High: >239 8 Low: <40 Desirable: 40-60 High: >60 9 Desirable: <100 Near Optimal: 100-129 Borderline High: 130-159 High: 160-189 Very High: >189 10 [id number] 11 Please note the change in INR reference range effective 17. 12 [id number] 13 Please note the change in INR reference range effective 17. 14 [id number] 15 [id number] 16 Because ethnic data is not always [...] dialysis) 25 fingerstick by VNS nurse 26 Medical Office Assistant: [id number] VIRGIE SANTILLAN 27 SEE RESULT BELOW Name: GENEVA CONTRERAS : [address]: Eros Peters DO Acct: [id number] Unit: [id number] AGE: 85 Location: ED Re11/08/15 SEX: F Status: REG ER SPEC: [id number] MANN: 11/08/[address]: Eros Peters DO REQ: [id number] RECD: 11/08/15 STATUS: ARNOLD LOVELACE DR: Tyshawn Baker MD _ SOURCE: NASAL SPDESC: ORDERED: Flu A B Request Procedure Result Reported Site Rapid Influenza A B Request Final 11/08/15- 1337 ML Specimen received for Influenza A/B Molecular testing * ML - MAIN LAB ([facility]) . END OF REPORT * ML=Testing performed at Main Lab DEPARTMENT OF PATHOLOGY, [address] [place] [address] Andrew Perez M.D. Director [facility] # [id number] 28 pt in hospital [facility] Severe Sepsis and Septic Shock Management Bundle [...] 0.03 ng/mL Not supportive of diagnosis of NV 0.03 - 0.50 ng/mL Indeterminate: suggest serial studies if clinically indicated. Greater than 0.5 ng/mL Consistent with diagnosis of NV 32 Acute inflammation: >10.00 33 >100 to <200 pg/mL: likely compensated congestive heart failure (CHF) 200 to 400 pg/mL: likely moderate CHF >400 pg/mL: likely moderate to severe CHF 34 *Ascorbic acid is present which may interfere with detection of blood. 35 SEE RESULT BELOW Name: GENEVA CONTRERAS : [address]: Beckie Rob DO Acct: [id number] Unit: [id number] AGE: 85 Location: [place] [address] Re11/08/15 Dis: 11/10/15 SEX: F Status: DIS IN SPEC: [id number] MANN: 11/08/[address]: Eros Peters DO REQ: [id number] RECD: 11/08/15 STATUS: ARNOLD LOVELACE DR: Tyshawn Baker MD _ SOURCE: BLOOD,VENO SPDESC: ORDERED: Blood Cult Procedure Result Reported Site Aerobic Culture Bottle Final 11/13/151137 ML No Growth Day 5 Anaerobic Culture Bottle Final 11/13/15- 1137 ML No Growth Day 5 * ML - MAIN LAB ([facility]) . END OF REPORT * ML=Testing performed at Main Lab DEPARTMENT OF PATHOLOGY, [address] [place] [address] Andrew Perez M.D. Director [place] # [id number] 36 SEE RESULT BELOW Name: GENEVA CONTRERAS : [address]: Beckie Rob DO Acct: [id number] Unit: [id number] AGE: 85 Location: [place] [address] Re11/08/15 Dis: 11/10/15 SEX: F Status: DIS IN SPEC: [id number] MANN: 11/09/15-[address]: Eros Peters DO REQ: [id number] RECD: 11/09/15 STATUS: COMP OTHR DR: Tyshawn Baker MD _ SOURCE: URINE [facility]: ORDERED: Urine Culture Procedure Result Reported Site Urine Culture Final 11/12/15- 824 ML No growth of clinically significant organisms * ML - MAIN LAB ([facility]) . END OF REPORT * ML=Testing performed at Main Lab DEPARTMENT OF PATHOLOGY, [address] [place] [address] Andrew Perez M.D. Director [facility] # [id number] 37 Because ethnic data is not always [...] with reg milk this am 48 cardiomegaly / no acute changes no effusion no cephalization [...] Date CPT Code Description Status Comment 07/16/2017 87042 Anticoagulant MGMT For Patient Taking Completed Warfarin, Inc Review & Intr 07/03/2017 70706 Anticoagulant MGMT For Patient Taking Completed Warfarin, Inc Review & Intr 06/25/2017 89565 Anticoagulant MGMT For Patient Taking Completed Warfarin, Inc Review & Intr 06/19/2017 03940 Anticoagulant MGMT For Patient Taking Completed Warfarin, Inc Review & Intr 11/26/2015 52855 X-Ray Chest Two Views Completed 11/26/2015 43756 Inject/Drain Joint/Bursa Small Completed 11/19/2015 21961 X-Ray Foot Three Views Completed 11/19/2015 99805 Remove Impact Cerumen Requiring Completed Instrument, Unilateral 06/14/2015 24398 Electrocardiogram Complete Completed 09/07/2014 30146 X-Ray Chest Two Views Completed 03/30/2014 87127 Dexa Bone Density Study One Or More Completed Sites Axial Skeleton 10/27/2013 24993 Electrocardiogram Complete Completed 10/27/2013 05115 X-Ray Chest Two Views Completed 09/09/2013 Mammogram Completed 2014:normal 09/14/2012 98250 Electrocardiogram Complete Completed 07/15/2007 Colonoscopy Completed normal in [place] 06/11/2007 Bone Mineral Density Test Completed normal Encounters Type Date Location Provider CPT E/M Dx Office Visit 08/09/2017 11:00a Main Office Lisa Rose, P.A. 12439 M54.5 M54.2 R05 Office Visit 04/10/2017 4:00p Main Office Lisa Rose, P.Elliott. 83247 S40.012D S00.12xD M89.8x8 M54.6 Z23 I10 Z91.81 Office Visit 12/25/2016 10:00a Main Office Carmelo Olea D.O. 38746 Z79.01 I34.9 I10 E78.00 M79.672 Office Visit 06/26/2016 1:30p Main Office Tyshawn Baker M.D. 30258 M25.511 Z79.01 I34.9 I10 E78.00 I34.0 Office Visit 11/26/2015 11:30a Main Office Tyshawn Baker M.D. 23187 J18.9 M79.672 Z79.01 I34.9 M77.42 I51.7 Office Visit 11/19/2015 1:30p Main Office Tyshawn Baker M.D. 29290 H61.22 M79.672 M10.9 Z79.01 Office Visit 11/12/2015 1:45p Main Office Tyshawn Baker M.D. 00415 J18.9 I10 Z79.01 I34.9 I35.9 E78.0 Office Visit 06/14/2015 8:55a Main Office Tyshawn Baker M.D. 75355 I34.9 I35.9 Z79.01 I10 E78.0 Z23 Z41.8 Office Visit 09/07/2014 11:30a Main Office Tyshawn Baker M.D. 51567 786.2 466.0 Office Visit 08/15/2014 10:30a Main Office Carmelo Olea D.O. 27798 V58.61 882.0 906.1 E917.3 E849.0 Office Visit 08/03/2014 9:15a Main Office Tyshawn Baker M.D. 54291 424.0 424.1 V58.61 401.9 272.0 Office Visit 06/08/2014 4:00p Main Office Tyshawn Baker M.D. 22206 424.0 424.1 V58.61 401.9 272.0 V58.69 366.9 V72.83 Office Visit 03/30/2014 10:00a Main Office Tyshawn Baker M.D. 78970 733.90 424.1 424.0 V58.61 401.9 272.0 V58.69 Office Visit 10/27/2013 11:15a Main Office Tyshawn Baker M.D. 05148 733.90 786.2 424.1 424.0 401.9 272.0 V58.61 Office Visit 06/02/2013 11:15a Main Office Tyshawn Baker M.D. 62143 424.1 V58.61 401.9 424.0 272.0 V76.10 Office Visit 01/30/2013 12:55p Main Office Tyshawn Baker M.D. 40949 401.9 424.1 V58.61 424.0 272.0 Office Visit 11/07/2012 4:15p Main Office Tyshawn Baker M.D. 92973 424.0 424.1 401.9 V58.61 V65.49 V03.82 V06.1 V07.2 Office Visit 09/14/2012 9:15a Main Office Tyshawn Baker M.D. 09650 053.9 V58.61 401.9 424.1 424.0 272.0 V45.81 Plan of Care 08/09/2017 - Lisa Rose, P.A.M54.5 Low back painNew Medication:Lidocaine Kvng 5 %Comments:Pt has allergy to asa, hives, so avoiding any sort of topical NSAID Pt has PMHx of herpes zoster in over truckFollow up:ice 20 minute 4 to 6 times a day low back heat on neck 3 times a day no more than 20 minM54.2 CervicalgiaFollow up:mild heat 20 minutes three times a dayR05 CoughNew Medication:Guaifenesin-Codeine 100-10 mg/5MLFollow up:i-stop checked, no past narcotics given be careful not to over use this medication and when going up and down stairs
--- OUTSIDE RECORDS SUMMARY | 2017-08-25 10:28 | XMS REPORT ---
:1930 External Reference #:[id number] Author Organization [facility] Address [address] [place] [address] Phone [phone] Care Team Providers Name Role Phone HCP given Primary Care Physician Unavailable Payers Type Date Identification Numbers Payment Provider Subscriber Commercial Policy Number: [id number] [facility] Medicare Ppo Geneva Contreras PayID: [id number] [address] [address] [place] [address] Problems Date Description Provider Status Onset: 09/14/2012 [...] (age 78 Years) First Brother due to [place] : (age 68 Years) Second Brother due to [place] : (age 14 Years) Third Brother due [...] small M54.5 Rose, 2017 amount to Edis [facility] up to 4 M.D. times a day [...] CPT Code Status Date Vaccine Lot # [id number] Given 04/10/2017 Influenza Virus Vaccine, Quadrivalent, Split, Preservative Free 22417 Given 01/30/2017 Influenza Virus Vaccine, Quadrivalent, Split, [id number] Preservative Free 59827 Given 03/13/2016 Influenza Vaccine Split Virus Preservative Free Im Use 13424 Given 06/14/2015 Prevnar 13 [id number] 67298 Given 03/04/2015 Influenza Vaccine Split Virus Preservative Free Im Use 19214 Given 02/05/2014 Influenza Vaccine Split Virus Preservative Free Im [id number] Use 06205 Given 03/13/2013 Flu, Split Virus 3Yrs [id number] 15669 Given 11/07/2012 Pneumococcal Immunization [id number] 98626 Given 11/07/2012 Adacel or Boostrix, TDaP [id number] Vital Signs Date Vital Result Comment 08/22/2017 [...] Range Note Ua Inhouse 08/09/2017 Ua Specific [place] 1.005 Ua PH 6.0 Protime W/ Inr(Add [...] 21 Ua Ketones - 21 Ua Specific [place] 1.010 21 Ua Blood - 21 Ua [...] 28 Urine Appearance Clear 28 Urine Specific [place] 1.013 1.010-1.030 28 Urine pH 5.0 5-9 [...] 42 Ua Ketones - 42 Ua Specific [place] 1.005 42 Ua Blood - 42 Ua [...] Bilirubin - Ua Ketones - Ua Specific [place] 1.010 Ua Blood - Ua PH 6.0 [...] Bilirubin - Ua Ketones - Ua Specific [place] 1.005 Ua Blood - Ua PH 6.0 [...] Bilirubin - Ua Ketones - Ua Specific [place] 1.010 Ua Blood - Ua PH 5.0 [...] Bilirubin - Ua Ketones - Ua Specific [place] 1.010 Ua Blood - Ua PH 5.0 Ua Protein - Ua Urobilinogen - Ua Nitrite - Ua Leukocytes - Laboratory test finding 10/28/2012 Inr 3.00 High 0.87-0.97 Inr/Protime 10/01/2012 Inr 2.97 High 0.87-0.97 1 [id number] 2 Because ethnic data is not always [...] 5 Kidney failure <15 (or dialysis) 3 [id number] 4 [id number] 5 Acute inflammation: >10.00 6 Desirable: <150 Borderline High: 150-199 High: 200-499 Very High: >500 7 Desirable: <200 Borderline High: 200-239 High: >239 8 Low: <40 Desirable: 40-60 High: >60 9 Desirable: <100 Near Optimal: 100-129 Borderline High: 130-159 High: 160-189 Very High: >189 10 [id number] 11 Please note the change in INR reference range effective 17. 12 [id number] 13 Please note the change in INR reference range effective 17. 14 [id number] 15 [id number] 16 Because ethnic data is not always [...] dialysis) 25 fingerstick by VNS nurse 26 Counselling Psychologist: [id number] VIRGIE SANTILLAN 27 SEE RESULT BELOW Name: GENEVA CONTRERAS : [address]: Eros Peters DO Acct: [id number] Unit: [id number] AGE: 85 Location: ED Re11/08/15 SEX: F Status: REG ER SPEC: [id number] MANN: 11/08/[address]: Eros Peters DO REQ: [id number] RECD: 11/08/15 STATUS: ARNOLD LOVELACE DR: Tyshawn Baker MD _ SOURCE: NASAL SPDESC: ORDERED: Flu A B Request Procedure Result Reported Site Rapid Influenza A B Request Final 11/08/15- 1337 ML Specimen received for Influenza A/B Molecular testing * ML - MAIN LAB ([facility]) . END OF REPORT * ML=Testing performed at Main Lab DEPARTMENT OF PATHOLOGY, [address] [place] [address] Andrew Perez M.D. Director [facility] # [id number] 28 pt in hospital [facility] Severe Sepsis and Septic Shock Management Bundle [...] 0.03 ng/mL Not supportive of diagnosis of OK 0.03 - 0.50 ng/mL Indeterminate: suggest serial studies if clinically indicated. Greater than 0.5 ng/mL Consistent with diagnosis of [place] 32 Acute inflammation: >10.00 33 >100 to <200 pg/mL: likely compensated congestive heart failure (CHF) 200 to 400 pg/mL: likely moderate CHF >400 pg/mL: likely moderate to severe CHF 34 *Ascorbic acid is present which may interfere with detection of blood. 35 SEE RESULT BELOW Name: GENEVA CONTRERAS : [address]: Beckie Rob DO Acct: [id number] Unit: [id number] AGE: 85 Location: [place] [address] Re11/08/15 Dis: 11/10/15 SEX: F Status: DIS IN SPEC: [id number] MANN: 11/08/[address]: Eros Peters DO REQ: [id number] RECD: 11/08/15 STATUS: ARNOLD LOVELACE DR: Tyshawn Baker MD _ SOURCE: BLOOD,VENO SPDESC: ORDERED: Blood Cult Procedure Result Reported Site Aerobic Culture Bottle Final 11/13/151137 ML No Growth Day 5 Anaerobic Culture Bottle Final 11/13/15- 1137 ML No Growth Day 5 * ML - MAIN LAB ([facility]) . END OF REPORT * ML=Testing performed at Main Lab DEPARTMENT OF PATHOLOGY, [address] [place] [address] Andrew Perez M.D. Director [place] # [id number] 36 SEE RESULT BELOW Name: GENEVA CONTRERAS : [address]: Beckie Rob DO Acct: [id number] Unit: [id number] AGE: 85 Location: [place] [address] Re11/08/15 Dis: 11/10/15 SEX: F Status: DIS IN SPEC: [id number] MANN: 11/09/15-[address]: Eros Peters DO REQ: [id number] RECD: 11/09/15 STATUS: COMP OTHR DR: Tyshawn Baker MD _ SOURCE: URINE [facility]: ORDERED: Urine Culture Procedure Result Reported Site Urine Culture Final 11/12/15- 824 ML No growth of clinically significant organisms * ML - MAIN LAB ([facility]) . END OF REPORT * ML=Testing performed at Main Lab DEPARTMENT OF PATHOLOGY, [address] [place] [address] Andrew Perez M.D. Director [facility] # [id number] 37 Because ethnic data is not always [...] Date CPT Code Description Status Comment 07/16/2017 32921 Anticoagulant MGMT For Patient Taking Completed Warfarin, Inc Review & Intr 07/03/2017 95318 Anticoagulant MGMT For Patient Taking Completed Warfarin, Inc Review & Intr 06/25/2017 21055 Anticoagulant MGMT For Patient Taking Completed Warfarin, Inc Review & Intr 06/19/2017 88486 Anticoagulant MGMT For Patient Taking Completed Warfarin, Inc Review & Intr 11/26/2015 40393 X-Ray Chest Two Views Completed 11/26/2015 68317 Inject/Drain Joint/Bursa Small Completed 11/19/2015 21935 X-Ray Foot Three Views Completed 11/19/2015 43997 Remove Impact Cerumen Requiring Completed Instrument, Unilateral 06/14/2015 06083 Electrocardiogram Complete Completed 09/07/2014 77888 X-Ray Chest Two Views Completed 03/30/2014 14845 Dexa Bone Density Study One Or More Completed Sites Axial Skeleton 10/27/2013 03604 Electrocardiogram Complete Completed 10/27/2013 98404 X-Ray Chest Two Views Completed 09/09/2013 Mammogram Completed 2014:normal 09/14/2012 44020 Electrocardiogram Complete Completed 07/15/2007 Colonoscopy Completed normal in [place] 06/11/2007 Bone Mineral Density Test Completed normal Encounters Type Date Location Provider CPT E/M Dx Office Visit 08/09/2017 11:00a Main Office Lisa Rose, P.A. 42766 M54.5 M54.2 R05 Office Visit 04/10/2017 4:00p Main Office Lisa Rose, P.Elliott. 78752 S40.012D S00.12xD M89.8x8 M54.6 Z23 I10 Z91.81 Office Visit 12/25/2016 10:00a Main Office Carmelo Olea D.O. 29110 Z79.01 I34.9 I10 E78.00 M79.672 Office Visit 06/26/2016 1:30p Main Office Tyshawn Baker M.D. 22704 M25.511 Z79.01 I34.9 I10 E78.00 I34.0 Office Visit 11/26/2015 11:30a Main Office Tyshawn Baker M.D. 09369 J18.9 M79.672 Z79.01 I34.9 M77.42 I51.7 Office Visit 11/19/2015 1:30p Main Office Tyshawn Baker M.D. 16482 H61.22 M79.672 M10.9 Z79.01 Office Visit 11/12/2015 1:45p Main Office Tyshawn Baker M.D. 48306 J18.9 I10 Z79.01 I34.9 I35.9 E78.0 Office Visit 06/14/2015 8:55a Main Office Tyshawn Baker M.D. 14766 I34.9 I35.9 Z79.01 I10 E78.0 Z23 Z41.8 Office Visit 09/07/2014 11:30a Main Office Tyshawn Baker M.D. 74741 786.2 466.0 Office Visit 08/15/2014 10:30a Main Office Carmelo Olea D.O. 23782 V58.61 882.0 906.1 E917.3 E849.0 Office Visit 08/03/2014 9:15a Main Office Tyshawn Baker M.D. 75456 424.0 424.1 V58.61 401.9 272.0 Office Visit 06/08/2014 4:00p Main Office Tyshawn Baker M.D. 35047 424.0 424.1 V58.61 401.9 272.0 V58.69 366.9 V72.83 Office Visit 03/30/2014 10:00a Main Office Tyshawn Baker M.D. 55565 733.90 424.1 424.0 V58.61 401.9 272.0 V58.69 Office Visit 10/27/2013 11:15a Main Office Tyshawn Baker M.D. 15588 733.90 786.2 424.1 424.0 401.9 272.0 V58.61 Office Visit 06/02/2013 11:15a Main Office Tyshawn Baker M.D. 78009 424.1 V58.61 401.9 424.0 272.0 V76.10 Office Visit 01/30/2013 12:55p Main Office Tyshawn Baker M.D. 35201 401.9 424.1 V58.61 424.0 272.0 Office Visit 11/07/2012 4:15p Main Office Tyshawn Baker M.D. 57266 424.0 424.1 401.9 V58.61 V65.49 V03.82 V06.1 V07.2 Office Visit 09/14/2012 9:15a Main Office Tyshawn Baker M.D. 52308 053.9 V58.61 401.9 424.1 424.0 272.0 V45.81 [...]
[2017-08-25] MEDS ORDERED: Albuterol 2.5 MG/3 ML NEB.SOL* (0.083%) INH ONE (10:59)
[2017-08-25] MEDS ORDERED: Ipratropium 0.5MG/2.5ML NEB* 0.5 MG/2.5 ML NEB.SOLN INH ONE (10:59)
--- NOTE | 2017-08-25 11:13 | UC ---
Respiratory Complaint HPI - HPI Summary HPI Summary: patient is accompanied by her son. He states mother has been coughing for close to a month, initially dry persistent cough day and night, which becomes more ' wet' with the use of albuterol MDI which was prescribed by PCP. She obtained a prescription of antibiotics which initially made her feel better but cough persisted. Denies fever, wheezing, nocturnal paroxysmal dyspnea, chest pain, SOB or palpitations. 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 ?: No Onset/Duration: Gradual Onset, Lasting Weeks Timing: Intermittent Episodes Severity Initially: Moderate Severity Currently: Moderate Pain Intensity: 0 Aggravating Factors: Deep Breaths Alleviating Factors: Bronchodilator Associated Signs And Symptoms: Positive: Negative - Risk Factors Pulmonary Embolism Risk Factors: Negative Cardiac Risk Factors: Negative Pseudomonas Risk Factors: Negative Tuberculosis Risk Factors: Negative - Allergies/Home Medications Allergies/Adverse Reactions: Allergies Allergy/AdvReac Type Severity Reaction Status Date / Time aspirin Allergy Hives Verified 08/25/17 10:28 Sulfa (Sulfonamide Allergy Hives Verified 08/25/17 10:28 Antibiotics) Home Medications: Home Medications Albuterol HFA INHALER* [Ventolin HFA Inhaler*] 2 puff INH Q4HR PRN 08/25/17 [ History Confirmed 08/25/17] guaiFENesin/CODIEN 100MG-10MG* [Robitussin AC 100Mg-10Mg*] 5 ml PO BEDTIME PRN 08/25/17 [History Confirmed 08/25/17] PMH/Surg Hx/FS Hx/Imm Hx Previously Healthy: Yes Cardiovascular History: Cardiac Disease, Atrial Fibrillation - Surgical History Surgical History: Yes Surgery Procedure, Year, and Place: CABG, 2009, [place], [place]. [facility], [facility] - Family History Known Family History: Negative: Respiratory Disease, Seizure Disorder - Social History Alcohol Use: Rare Substance Use Type: None Smoking Status (MU): Former Smoker Type: Cigarettes Length of Time of Smoking/Using Tobacco: 35 YEARS Have You Smoked in the Last Year: No When Did the Patient Quit Smoking/Using Tobacco: 1974 - Immunization History Most Recent Influenza Vaccination: fall 2014 Most Recent Tetanus Shot: unknown Most Recent Pneumonia Vaccination: 06/2015 Review of Systems Constitutional: Negative Respiratory: Cough All Other Systems Reviewed And Are Negative: Yes Physical Exam Triage Information Reviewed: Yes Appearance: Well-Appearing Vital Signs: Initial Vital Signs Temp 98.8 F 08/25/17 10:32 Pulse 90 08/25/17 10:32 Resp 22 08/25/17 10:32 BP 105/58 08/25/17 10:32 Pulse Ox 94 08/25/17 10:32 Vital Signs Reviewed: Yes Eyes: Positive: Conjunctiva Clear ENT: Positive: Pharynx normal - TM: not visible due to cerumen, Uvula midline Dental Exam: Normal Neck: Positive: Supple, Nontender, No Lymphadenopathy Respiratory: Positive: Chest non-tender, Lungs clear, Normal breath sounds, No respiratory distress Cardiovascular: Positive: RRR, No Murmur, Pulses Normal, Brisk Capillary Refill Abdomen Description: Positive: Nontender, No Organomegaly, Soft Bowel Sounds: Positive: Present Musculoskeletal: Positive: No Edema Skin Exam: Normal UC Diagnostic Evaluation - Laboratory O2 Sat by Pulse Oximetry: 94 Respiratory Course/Dx - Course Course Of Treatment: CXR shows no acute dissease, has symptom relief with albuterol/atrovent nebulizations, patient to start prescribed inhaler fluticasone bid, oral fluids, stop over the counter/prescription cough syrups, continue albuterol MDI as needed with spacer and oral hydration. F/u with PCP - Differential Dx/Diagnosis Provider Diagnoses: Subacute Bronchitis Discharge - Discharge Plan Condition: Improved Disposition: HOME Prescriptions: Fluticasone HFA 220 mcg(NF) [Flovent HFA 220 Mcg(NF)] 1 puff INH BID 10 Days #1 mdi Spacer/Holding Chamber (NF) [Easivent CHAMBER (NF)] 1 unit INH DAILY #1 device Patient Education Materials: Acute Bronchitis (ED) Referrals: Carmelo Olea DO [Primary Care Provider] -
--- NOTE | 2017-08-25 11:49 | RAD ---
INDICATION: Cough x1 month COMPARISON: Chest x-ray November 08, 2015 TECHNIQUE: PA and lateral views of the chest were obtained. 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 A third surgical device is seen overlying the anterior base of the heart The heart and mediastinum are normal in size and contour. The lungs are grossly clear. There is no evidence of large pleural effusion. Visualized bones are normal for the patient's age. There is no radiographic evidence of free air beneath the diaphragm IMPRESSION: No radiographic evidence of acute cardiopulmonary disease.
[2017-08-25 12:26] VITALS: BP 114/65
== END 2017-08-25 12:19 | disposition home or self-care (01) ==
LOC: UCEAST 10:15
DX: J20.9 Acute bronchitis, unspecified (principal); Z87.891 Personal history of nicotine dependence; Z88.6 Allergy status to analgesic agent; Z88.2 Allergy status to sulfonamides
CPT/HCPCS: 71046; 99213; G0463